=== PATIENT | female | born 1960 | race African-American/Black ===

== ENCOUNTER 2019-07-14 11:50 | IRF | payer OTHER, SELFPAY ==
[2019-07-14 11:57] VITALS: BMI 45.8
--- NOTE | 2019-07-14 11:58 | ADMGEN ---
This patient, Sun Cha, was admitted to [facility] Room 223-02. Patient/family oriented to hospital policies and general routines including ID bracelet, bed and alarms, visiting hours, pain management, procedures, bathroom and other care routines, personal items, smoking policy, room service/diet, and visiting hours. Valuables list has been completed. Information on how to activate the Rapid Response Team has been discussed. Patient/Family are encouraged to report perceived risks to care and to ask questions if they do not understand what they are told or what they should do.
[2019-07-14 12:21] VITALS: BP 139/58; PULSE 60; RESP 18; TEMP 36.6; O2SAT 100; BMI 45.8
--- NOTE | 2019-07-14 12:30 | WPDREHABHP ---
H&P: HPI History of Present Illness Chief complaint: CVA Narrative: Sun Cah is a 59 year old female HISTORY OF PRESENT ILLNESS: The patient's primary rehab impairment category is Stroke The etiologic diagnosis is left /large basal ganglia hemorrhage I saw this patient [id number] on July 14, 2019 at 12:30 p.m. The patient is a 59-year-old female with a past medical history of hypertension who presented to [facility] in July 08, 2019 via EMS after being found down by her family at 1:25 p.m.. Initial NIHSS was 26 with leftward gaze flaccid right upper extremity and right lower extremity and severe aphasia. CT of the head revealed a large basal ganglia hemorrhage 3.6 x 2.4 - 10.8 cubic centimeters. CTA showed no underlying vascular abnormalities. Neurology was consulted and felt this was likely a hypertensive hemorrhage based on location and presentation. She was placed on a Cardene drip per was weaned off the same day. On July 09, 2019 the patient passed her bedside swallowing evaluation and was placed on a regular consistency diet with thin liquids. Hydrochlorothiazide was resumed on July 09, 2019 and increase to 50 milligram daily on July 10, 2019. She experienced hypokalemia after increasing her hydrochlorothiazide so she was given potassium 40 milliequivalents. On July 11, 2019 amlodipine 5 milligram daily was added to her medications which has been increased to 10 milligram daily I see that. Physical examination continues to reveal right-sided hemiparesis rather hemiplegia almost decreased gross motor control impaired balance decrease safety awareness and aphasia. The patient was discharged to us with subcutaneous heparin for DVT prophylaxis. The patient has not traveled outside the yes or had contact with someone who is ill that has traveled outside the [place] in the past 21 days. The patient has not traveled to an area of the [place] that is experiencing known transmission of the vargas virus or head close personal contact the someone that has. The patient does not have a fever. The patient does not have symptoms of a lower respiratory illness. Therapy was initiated at the acute care facility and the patient transferred to us from [facility] on July 14, 2019 on FALLS OR SURGERIES: The patient has had no major surgeries in the 100 days prior to admission. They had no falls in the past year. They had no falls with injury in the past year. PAST MEDICAL HISTORY: hypertension asthma PAST SURGICAL HISTORY: ankle surgery SOCIAL HISTORY: the patient lives with her son at baseline in a 1 level home with 1 step to enter. She was completely independent and working part-time at [employer]. She drives herself. The daughter is available to assist her following rehabilitation if necessary. She reported no falls except this fall in the past 6 months. No major surgeries. Former smoker. Alcohol occasionally. No illicit use of drugs FAMILY HISTORY: brother had strokes and diabetes PRIOR LEVEL OF FUNCTION: Eating was INDEPENDENT Oral Care was INDEPENDENT Toileting Hygiene was INDEPENDENT Shower/Bathing was INDEPENDENT Upper Body Dressing was INDEPENDENT Lower Body Dressing was INDEPENDENT Donning/[place] Footwear was INDEPENDENT Rolling Left and Right was INDEPENDENT Sit to Lying was INDEPENDENT Lying to Sitting was INDEPENDENT Sit to Stand was INDEPENDENT Bed to Chair Transfers was INDEPENDENT Toilet Transfers was INDEPENDENT Walking was INDEPENDENT 999 feet with NO DEVICE Wheelchair Mobility was NOT APPLICABLE PRIOR TO ADMISSION Stairs were INDEPENDENT CURRENT LEVEL OF FUNCTION: Eating was set upper clean up Oral Care was partial or moderate assistance Toileting Hygiene was substantial or maximal assist Shower/Bathing was substantial or maximal assist Upper Body Dressing was partial or morbid assist Lower Body Dressing was substantial or maximal assist Donnin
[2019-07-14 14:00] VITALS: BP 136/56; PULSE 67; RESP 18; TEMP 36.6; O2SAT 98
[2019-07-14] MEDS: HEPARIN SODIUM 5,000 UNITS/ML VIAL 5000 UNITS SUB-Q (20:20)
[2019-07-14] MEDS: DOCUSATE SODIUM 100 MG CAPSULE PO (20:20)
[2019-07-14 22:00] VITALS: BP 131/50; PULSE 59; RESP 19; TEMP 36.6; O2SAT 100
[2019-07-15 04:34] LABS: Basophils Percent Auto 0.4 % (0.2-1.2); Eosinophils Absolute Auto 0.2 K/mm3 (0-0.3); Eosinophils Percent Auto 2.4 % (0-4.4); Hematocrit 40.2 % (37.0-47.0); Hemoglobin 13.1 g/dL (12.0-15.0); Immature Granulocyte Absolute 0.03 K/mm3 (0.00-0.031); Immature Granulocyte Percent A 0.3 % (0-0.5); Lymphocytes Absolute Auto 2.37 K/mm3 (0.9-3.2); Mean Corpuscular HGB Conc 32.6 g/dl (32-36); Mean Corpuscular Hemoglobin 30.4 pg (26-34); Mean Corpuscular Volume 93.3 fl (80-100); Mean Platelet Volume 11.8 fl (7.4-10.4); Monocytes Absolute Auto 1.2 K/mm3 (0.1-0.6); Monocytes Percent Auto 12.1 % (2.6-8.5); Neutrophils Absolute Auto 5.7 K/mm3 (1.3-6.7); Neutrophils Percent Auto 59.8 % (45.5-73.1); Platelet Count Result 212 k/mm3 (150-375); Red Blood Count 4.31 M/mm3 (4.2-5.4); Red Cell Distribution Width 13.7 % (11.5-14.5); White Blood Count 9.5 K/mm3 (4.5-10.0)
[2019-07-15 04:46] LABS: Blood Urea Nitrogen 23 mg/dL (7-17); Calcium 9.7 mg/dL (8.4-10.2); Carbon Dioxide 25 mmol/L (22-30); Chloride 103 mmol/L (98-107); Estimated CRCL calculation 80 ml/min; Estimated Glomerular Filt Rate > 60; Glucose 104 mg/dL (65-105); Potassium 4.2 mmol/L (3.4-5.0); Sodium 135 mmol/L (137-145)
[2019-07-15 06:00] VITALS: BP 123/56; PULSE 62; RESP 18; TEMP 36.8; O2SAT 97
[2019-07-15] MEDS: ACETAMINOPHEN 325 MG TABLET 650 MG PO ×2 (06:35→20:06)
[2019-07-15] MEDS: HEPARIN SODIUM 5,000 UNITS/ML VIAL 5000 UNITS SUB-Q ×3 (06:36→20:08)
[2019-07-15] MEDS: hydroCHLOROthiazide 25 MG TABLET 50 MG PO (08:29)
[2019-07-15] MEDS: AMLODIPINE BESYLATE 5 MG TABLET 10 MG PO (08:29)
[2019-07-15] MEDS: SENNOSIDES 8.6 MG TABLET PO (08:29)
[2019-07-15] MEDS: DOCUSATE SODIUM 100 MG CAPSULE PO ×2 (08:29→20:06)
--- NOTE | 2019-07-15 11:59 | WPDNEURORHBP ---
Subjective Date/time seen: 07/15/19 11:59 Interval history: this 59-year-old Afro-German woman is here after having had relatively large left basal ganglia hemorrhage with aphasia and moderately severe right-sided hemiparesis the patient is stable and going through the evaluation she will need the bedside swallowing study which she already had it done at the referring hospital the patient denies any worsening overall she denies any headache nausea vomiting chest pain shortness of breath fever chills sore throat Review of Systems Review of Systems: All systems reviewed & are unremarkable except as noted in HPI and below Exam Const: General: comfortable and no acute distress HENMT: General nose exam: Normal nares present Mouth: Yes moist mucous membranes Eyes: General: appearance normal, both eyes and all related structures Neck: Neck: supple and no JVD Resp: Effort & Inspection: normal respiratory effort Auscultation: clear to auscultation bilaterally Cardio: Rate: regular rate Rhythm: regular rhythm GI: GI Palp: Yes Soft to palpation Auscultation: normal bowel sounds Skin: General skin exam: normal color and no rashes or lesions noted Neuro: Other: patient is awake and alert able follow all commands she clearly has aphasia with the component of expression is more affected than the comprehension and also has a moderately severe right-sided hemiparesis which is too early to say how much she is improving but overall she is stable and making some progress as for as the speech is concerned Extrem: General: normal to inspection Psych: Other: patient does not look depressed or upset but she is little frustrated due to aphasia on the other hand difficult to assess her faculties because of the speech defect Objective Data Vital Signs Vital Signs: Vital Signs - 24 hr 07/14/19 12:21 07/14/19 14:00 07/14/19 22:00 Temperature 36.6 C 36.6 C 36.6 C Pulse Rate 60 67 59 L Respiratory Rate 18 18 19 Blood Pressure 139/58 L 136/56 L 131/50 L Pulse Oximetry 100 98 100 07/15/19 06:00 Temperature 36.8 C Pulse Rate 62 Respiratory Rate 18 Blood Pressure 123/56 L Pulse Oximetry 97 Intake/Output Intake/Output: Intake & Output 07/12/19 07/13/19 07/14/19 07/15/19 23:59 23:59 23:59 23:59 Intake Total 360 360 Balance 360 360 Meds/Results Medications: Active Medications Generic Name Dose Route Start Last Admin Trade Name Zayda PRN Reason Stop Dose Admin Acetaminophen 650 mg 07/14/19 12:47 07/15/19 06:35 Tylenol Tablet PO 650 mg Q4H PRN Administration Pain Albuterol 2 puff 07/14/19 12:47 Proventil Hfa INHALATION Q4H PRN Shortness Of Breath Amlodipine Besylate 10 mg 07/15/19 09:00 07/15/19 08:29 Norvasc PO 10 mg DAILY CHANDRA Administration Docusate Sodium 100 mg 07/14/19 21:00 07/15/19 08:29 Colace Capsule PO 100 mg Q12HR CHANDRA Administration Heparin Sodium (Porcine) 5,000 units 07/14/19 14:00 07/15/19 06:36 Heparin Sodium SUB-Q 5,000 units Q8HR CHANDRA Administration Hydrochlorothiazide 50 mg 07/15/19 09:00 07/15/19 08:29 Hydrochlorothiazide PO 50 mg DAILY CHANDRA Administration Senna 8.6 mg 07/15/19 09:00 07/15/19 08:29 Senokot Tablet PO 08/14/19 09:01 8.6 mg DAILY CHANDRA Administration Labs Labs: Laboratory Results - last 24 hr 07/15/19 07/15/19 04:28 04:28 WBC 9.5 RBC 4.31 Hgb 13.1 Hct 40.2 MCV 93.3 MCH 30.4 MCHC 32.6 RDW 13.7 Plt Count 212 MPV 11.8 H Immature Gran % (Auto) 0.3 Neut % (Auto) 59.8 Lymph % (Auto) 25.0 [place] % (Auto) 12.1 H Eos % (Auto) 2.4 Baso % (Auto) 0.4 Lymph # (Auto) 2.37 [place] # (Auto) 1.2 H Eos # (Auto) 0.2 Baso # (Auto) 0.0 Abs Immat Gran (auto) 0.03 Absolute Neuts (auto) 5.7 Absolute Nucleated RBC 0.0 Nucleated RBC % 0.0 Sodium 135 L Potassium 4.2 Chloride 103 Carbon Dioxide 25 BUN 23 H Creatinine 0.90 Estim Creat
--- NOTE | 2019-07-15 13:46 | PCSTNOTE ---
Please refer to the Bedside Swallow Evaluation in the EMR. Please note, silent aspiration cannot be ruled out at bedside.
[2019-07-15 14:00] VITALS: BP 145/60; PULSE 58; RESP 20; TEMP 37.2; O2SAT 100
[2019-07-15 14:03] VITALS: BMI 45.8
[2019-07-15 21:48] VITALS: BP 132/56; PULSE 66; RESP 18; TEMP 37.1; O2SAT 97
[2019-07-16] MEDS: HEPARIN SODIUM 5,000 UNITS/ML VIAL 5000 UNITS SUB-Q ×3 (05:57→20:07)
[2019-07-16] MEDS: ACETAMINOPHEN 325 MG TABLET 650 MG PO ×2 (05:58→12:43)
[2019-07-16 06:00] VITALS: BP 133/63; PULSE 60; RESP 16; TEMP 36.9; O2SAT 98
[2019-07-16] MEDS: AMLODIPINE BESYLATE 5 MG TABLET 10 MG PO (08:34)
[2019-07-16] MEDS: SENNOSIDES 8.6 MG TABLET PO (08:34)
[2019-07-16] MEDS: hydroCHLOROthiazide 25 MG TABLET 50 MG PO (08:34)
[2019-07-16] MEDS: DOCUSATE SODIUM 100 MG CAPSULE PO ×2 (08:34→20:07)
[2019-07-16 14:00] VITALS: BP 127/66; PULSE 60; RESP 18; TEMP 37.1; O2SAT 100
--- NOTE | 2019-07-16 14:16 | WPDNEURORHBP ---
Subjective Date/time seen: 07/16/19 14:16 Interval history: this 59-year-old woman is here after suffering from rather large left basal ganglia hemorrhage which has left her with aphasia and right-sided hemiparesis from both of which she is improving she denies any headache nausea vomiting double vision blurred vision her or any new weakness in fact she is improving overall no fever no chills no sore throat abdominal pain or vomiting Review of Systems Review of Systems: All systems reviewed & are unremarkable except as noted in HPI and below Functional Status Ambulation Ability Ability to Ambulate 10 Feet: Maximum Assistance X 1 Ambulation Assistive Devices: Railings Transfers Ability Ability to Transfer In/Out of Chair: Maximum Assistance X 1 Exam Const: General: comfortable and no acute distress HENMT: General nose exam: Normal nares present Mouth: Yes moist mucous membranes Eyes: General: appearance normal, both eyes and all related structures Neck: Neck: supple and no JVD Resp: Effort & Inspection: normal respiratory effort Auscultation: clear to auscultation bilaterally Cardio: Rate: regular rate Rhythm: regular rhythm GI: GI Palp: Yes Soft to palpation Auscultation: normal bowel sounds Skin: General skin exam: normal color and no rashes or lesions noted Neuro: Other: patient's aphasia is improving likewise right hemiparesis is improving and once she realizes it she seems to be handling gait better Extrem: General: normal to inspection Psych: Other: due to aphasia component it is difficult to assess her overall psychological /mental status Objective Data Vital Signs Vital Signs: Vital Signs - 24 hr 07/15/19 21:48 07/16/19 06:00 Temperature 37.1 C 36.9 C Pulse Rate 66 60 Respiratory Rate 18 16 Blood Pressure 132/56 L 133/63 Pulse Oximetry 97 98 Intake/Output Intake/Output: Intake & Output 07/13/19 07/14/19 07/15/19 07/16/19 23:59 23:59 23:59 23:59 Intake Total 360 840 240 Balance 360 840 240 Meds/Results Medications: Active Medications Generic Name Dose Route Start Last Admin Trade Name Freq PRN Reason Stop Dose Admin Acetaminophen 650 mg 07/14/19 12:47 07/16/19 12:43 Tylenol Tablet PO 650 mg Q4H PRN Administration Pain Albuterol 2 puff 07/14/19 12:47 Proventil Hfa INHALATION Q4H PRN Shortness Of Breath Amlodipine Besylate 10 mg 07/15/19 09:00 07/16/19 08:34 Norvasc PO 10 mg DAILY CHANDRA Administration Docusate Sodium 100 mg 07/14/19 21:00 07/16/19 08:34 Colace Capsule PO 100 mg Q12HR CHANDRA Administration Heparin Sodium (Porcine) 5,000 units 07/14/19 14:00 07/16/19 14:05 Heparin Sodium SUB-Q 5,000 units Q8HR CHANDRA Administration Hydrochlorothiazide 50 mg 07/15/19 09:00 07/16/19 08:34 Hydrochlorothiazide PO 50 mg DAILY CHANDRA Administration Senna 8.6 mg 07/15/19 09:00 07/16/19 08:34 Senokot Tablet PO 08/14/19 09:01 8.6 mg DAILY CHANDRA Administration Progress Note: A&P Assessment and Plan (1) Hypertension: Code(s): I10 - Essential (primary) hypertension Status: Acute (2) Intracranial hemorrhage: Code(s): I62.9 - Nontraumatic intracranial hemorrhage, unspecified Status: Acute (3) Stroke: Code(s): I63.9 - Cerebral infarction, unspecified Status: Acute Additional Plan medical management PT OT and gait training
--- NOTE | 2019-07-16 15:45 | RPD ---
INDIVIDUALIZED PLAN OF CARE FOR Sun Cha Brief Synthesis of Pre-Admission Screen, Post-Admission Evaluation and Therapy Evaluations: The patient presents to rehab with a large left basal ganglia hemorrhage. Comorbidities include Hypertension, right hemiparesis, expressive aphasia, hypokalemia, hypertensive urgency, and asthma.The patient needs physician monitoring and treatment of hypertension, hypokalemia, monitoring for adverse reactions to new medications, monitoring for infection, and pain control. The patient requires nursing services for frequent neuro checks, anticoagulation therapy, medication management and education, pressure relief and skin care management, monitoring of labs, bowel and bladder training, and fall/safety precautions. Deficits include:ADLs, Balance, Cognition, Endurance, Family Training/Education, Mobility, Pain Management, ROM, Safety, Speech, Strength, and Transfers. Pediatric Surgeon/Case Management for: Discharge Planning and Patient/Family Counseling Physical Therapy: 5 days per week for 60 minutes. Treatments may include: Therapeutic Exercise, Gait Training, Neuromuscular Re-education, Transfer Training, Community Reintegration, Bed Mobility, Patient/Family Education, Wheelchair Mobility Group Therapy/Concurrent Therapy Rationales: -Improve attention span during functional activities in a distracted environment. -Enhance problem solving and/or adequate judgment skills during functional activities in a distracted environment. -Promote increased safety awareness in a distracted environment to reduce fall risk with functional tasks, transfers, and ambulation to allow a more safe, self-sufficient return to the home environment. -Improve dynamic balance skills to promote safety and independence with functional activities in a distracted environment for maximum gain. Occupational Therapy: 5 days per week for 60 minutes. Treatments may include: Therapeutic Exercise, Therapeutic Activity, Cognitive Training, Self-Care Transfer Training, Community Reintegration, Home Management, Patient/Family Education, Wheelchair Mobility Training, Energy Conservation Training Group Therapy/Concurrent Therapy Rationales: -Allow therapist to observe and teach generalization and carry-over of skills learned in individual therapy. -Enhance problem solving and sequencing skills during therapeutic activities in a distracted environment. -Promote increased safety awareness in a realistic setting to reduce fall risk with functional tasks due to visual and verbal distractions. -Increase functional level with ADLs, ADL transfers and use of adaptive equipment through therapeutic activities with others while promoting safety to allow a more safe, self-sufficient return home. Speech Therapy: 5 days per week for 60 minutes. Treatments may include: Dysphasia Therapy, Speech/Language/Communication Therapy, Cognitive Training, Patient/Family Education Group Therapy/Concurrent Therapy - Rationale: -Allow therapist to observe and teach generalization and carry-over of skills learned in individual therapy. -Improve comprehension skills with complex or abstract ideas through discussion in a realistic setting. -Enhance problem solving skills with complex issues during activities in a distracted environment. -Promote increased memory skills and concentration in a distracted environment for a safe transition home. -Improve attention and focus with language/communication skills in a realistic and supportive therapeutic setting. -Allow for practice of expression of basic needs and ideas through functional activities with others. Medical Prognosis: Good Anticipated Length of Stay: 14 days Rehab Goals: Eating Goal: 05-Setup or Clean Up Assistance Oral Hygiene Goal: 06-Independent Toileting Hygiene Goal: 03-Partial/Moderate Assistance Shower/Bathe Self Goal: 03-Partial/Moderate Assistance Upper Body Dressing Goal: 03-Partial/Moderate Assistance Lower Body Dressing Go
[2019-07-16 22:00] VITALS: BP 136/66; PULSE 86; RESP 18; TEMP 36.8; O2SAT 100
[2019-07-17] MEDS: HEPARIN SODIUM 5,000 UNITS/ML VIAL 5000 UNITS SUB-Q ×3 (05:39→20:26)
[2019-07-17 06:00] VITALS: BP 143/64; PULSE 62; RESP 18; TEMP 36.8; O2SAT 95
[2019-07-17 08:00] VITALS: PULSE 62; RESP 18; O2SAT 95
[2019-07-17] MEDS: hydroCHLOROthiazide 25 MG TABLET 50 MG PO (08:33)
[2019-07-17] MEDS: AMLODIPINE BESYLATE 5 MG TABLET 10 MG PO (08:34)
[2019-07-17] MEDS: DOCUSATE SODIUM 100 MG CAPSULE PO ×2 (08:34→20:26)
[2019-07-17] MEDS: SENNOSIDES 8.6 MG TABLET PO (08:34)
--- NOTE | 2019-07-17 11:18 | WPDNEURORHBP ---
Subjective Date/time seen: lady with left basal gangliar hemorrhage/[id number]/11/20 11:18 Review of Systems Review of Systems: All systems reviewed & are unremarkable except as noted in HPI and below Functional Status Ambulation Ability Ability to Ambulate 10 Feet: Maximum Assistance X 1 Ambulation Assistive Devices: Railings Transfers Ability Ability to Transfer In/Out of Chair: Maximum Assistance X 1 Exam Const: General: comfortable and no acute distress HENMT: Head: normocephalic General nose exam: Normal external nose present and No nasal discharge present Face and sinus: normal facial exam Mouth: Yes Normal oral and palatal mucosa present, Yes tongue normal and Yes moist mucous membranes Neck: Neck: full ROM Chest: Chest palpation & inspection: normal palpation of entire chest wall Resp: Effort & Inspection: normal respiratory effort Auscultation: clear to auscultation bilaterally Cardio: Rate: regular rate Rhythm: regular rhythm GI: Auscultation: normal bowel sounds Skin: General skin exam: no rashes or lesions noted Neuro: General: oriented to place and moves all extremities Cranial nerves: Yes Equal, round and reactive pupils present, Yes Bilaterally intact EOM present and Yes Nystagmus not present Speech: Expressive aphasia present Gait exam (Neuro): Unable to assess gait Motor exam (neuro): Abnormal motor strength present (right hemiparesis) Deep tendon reflexes (DTR's): Right triceps reflex intensity grade: 1+, Left triceps reflex intensity grade: 0, Rt Biceps (C5, C6): 1+, Left biceps reflex intensity grade: 0, Right brachioradialis reflex intensity grade: 1+, Left brachioradialis reflex intensity grade: 0, Right patellar reflex intensity grade: 1+, Left patellar reflex intensity grade: 0, Right ankle reflex intensity grade: 1+ and Left ankle reflex intensity grade: 0 Plantar Reflex Responses: downgoing: left and upgoing (positive Babinski): right Psych: Affect: normal affect Attitude: cooperative Other: aphasic Objective Data Vital Signs Vital Signs: Vital Signs - 24 hr 07/16/19 14:00 07/16/19 22:00 07/17/19 06:00 Temperature 37.1 C 36.8 C 36.8 C Pulse Rate 60 86 62 Respiratory Rate 18 18 18 Blood Pressure 127/66 136/66 143/64 H Pulse Oximetry 100 100 95 Intake/Output Intake/Output: Intake & Output 07/14/19 07/15/19 07/16/19 07/17/19 23:59 23:59 23:59 23:59 Intake Total 360 840 720 240 Balance 360 840 720 240 Meds/Results Medications: Active Medications Generic Name Dose Route Start Last Admin Trade Name Freq PRN Reason Stop Dose Admin Acetaminophen 650 mg 07/14/19 12:47 07/16/19 12:43 Tylenol Tablet PO 650 mg Q4H PRN Administration Pain Albuterol 2 puff 07/14/19 12:47 Proventil Hfa INHALATION Q4H PRN Shortness Of Breath Amlodipine Besylate 10 mg 07/15/19 09:00 07/17/19 08:34 Norvasc PO 10 mg DAILY CHANDRA Administration Docusate Sodium 100 mg 07/14/19 21:00 07/17/19 08:34 Colace Capsule PO 100 mg Q12HR CHANDRA Administration Heparin Sodium (Porcine) 5,000 units 07/14/19 14:00 07/17/19 05:39 Heparin Sodium SUB-Q 5,000 units Q8HR CHANDRA Administration Hydrochlorothiazide 50 mg 07/15/19 09:00 07/17/19 08:33 Hydrochlorothiazide PO 50 mg DAILY CHANDRA Administration Senna 8.6 mg 07/15/19 09:00 07/17/19 08:34 Senokot Tablet PO 08/14/19 09:01 8.6 mg DAILY CHANDRA Administration Progress Note: A&P Assessment and Plan (1) Hypertension: Code(s): I10 - Essential (primary) hypertension Status: Acute (2) Intracranial hemorrhage: Code(s): I62.9 - Nontraumatic intracranial hemorrhage, unspecified Status: Acute Additional Plan involved no change and no complaints
[2019-07-17 14:00] VITALS: BP 134/53; PULSE 65; RESP 20; TEMP 37.2; O2SAT 100
[2019-07-17 22:00] VITALS: BP 142/68; PULSE 60; RESP 20; TEMP 36.9; O2SAT 100
[2019-07-18 06:00] VITALS: BP 138/59; PULSE 68; RESP 18; TEMP 36.5; O2SAT 98
[2019-07-18] MEDS: HEPARIN SODIUM 5,000 UNITS/ML VIAL 5000 UNITS SUB-Q ×3 (06:18→20:55)
[2019-07-18] MEDS: hydroCHLOROthiazide 25 MG TABLET 50 MG PO (08:32)
[2019-07-18] MEDS: AMLODIPINE BESYLATE 5 MG TABLET 10 MG PO (08:32)
[2019-07-18] MEDS: SENNOSIDES 8.6 MG TABLET PO (08:33)
[2019-07-18] MEDS: DOCUSATE SODIUM 100 MG CAPSULE PO ×2 (08:33→20:55)
[2019-07-18 14:00] VITALS: BP 110/60; PULSE 68; RESP 18; TEMP 36.8; O2SAT 97
[2019-07-18 22:00] VITALS: BP 126/74; PULSE 89; RESP 18; TEMP 36.9; O2SAT 98
[2019-07-19 06:00] VITALS: BP 135/62; PULSE 63; RESP 18; TEMP 36.3; O2SAT 97
[2019-07-19] MEDS: HEPARIN SODIUM 5,000 UNITS/ML VIAL 5000 UNITS SUB-Q ×3 (06:16→20:12)
[2019-07-19] MEDS: ACETAMINOPHEN 325 MG TABLET 650 MG PO ×2 (06:30→20:21)
[2019-07-19] MEDS: AMLODIPINE BESYLATE 5 MG TABLET 10 MG PO (08:22)
[2019-07-19] MEDS: DOCUSATE SODIUM 100 MG CAPSULE PO ×2 (08:22→20:13)
[2019-07-19] MEDS: hydroCHLOROthiazide 25 MG TABLET 50 MG PO (08:22)
[2019-07-19] MEDS: SENNOSIDES 8.6 MG TABLET PO (11:00)
--- NOTE | 2019-07-19 11:32 | WPDNEURORHBP ---
Subjective Date/time seen: left basal ganglia [id number]/20 11:32 Review of Systems Review of Systems: All systems reviewed & are unremarkable except as noted in HPI and below Functional Status Ambulation Ability Ability to Ambulate 10 Feet: Maximum Assistance X 1 Ambulation Assistive Devices: Railings Transfers Ability Ability to Transfer In/Out of Chair: Moderate Assistance X 1 Exam Const: General: cooperative, comfortable and no acute distress Nutritional Appearance: average body habitus Eyes: General: appearance normal, both eyes and all related structures Neck: Neck: full ROM Resp: Effort & Inspection: normal respiratory effort Auscultation: clear to auscultation bilaterally Cardio: Rate: regular rate Rhythm: regular rhythm GI: Auscultation: normal bowel sounds Skin: General skin exam: no rashes or lesions noted Neuro: General: oriented to person and oriented to place Cranial nerves: Yes Equal, round and reactive pupils present, Yes Nystagmus not present, Yes Normal facial strength present, Yes Midline tongue present, Yes Symmetric palate elevation present and Yes Ability to bilaterally rotate head present Cognition (Neuro): normal cognition Motor exam (neuro): Abnormal motor strength present (right hemiparesis) Objective Data Vital Signs Vital Signs: Vital Signs - 24 hr 07/18/19 14:00 07/18/19 22:00 07/19/19 06:00 Temperature 36.8 C 36.9 C 36.3 C L Pulse Rate 68 89 63 Respiratory Rate 18 18 18 Blood Pressure 110/60 126/74 135/62 Pulse Oximetry 97 98 97 Intake/Output Intake/Output: Intake & Output 07/16/19 07/17/19 07/18/19 07/19/19 23:59 23:59 23:59 23:59 Intake Total 720 540 500 240 Balance 720 540 500 240 Meds/Results Medications: Active Medications Generic Name Dose Route Start Last Admin Trade Name Freq PRN Reason Stop Dose Admin Acetaminophen 650 mg 07/14/19 12:47 07/19/19 06:30 Tylenol Tablet PO 650 mg Q4H PRN Administration Pain Albuterol 2 puff 07/14/19 12:47 Proventil Hfa INHALATION Q4H PRN Shortness Of Breath Amlodipine Besylate 10 mg 07/15/19 09:00 07/19/19 08:22 Norvasc PO 10 mg DAILY CHANDRA Administration Docusate Sodium 100 mg 07/14/19 21:00 07/19/19 08:22 Colace Capsule PO 100 mg Q12HR CHANDRA Administration Heparin Sodium (Porcine) 5,000 units 07/14/19 14:00 07/19/19 06:16 Heparin Sodium SUB-Q 5,000 units Q8HR CHANDRA Administration Hydrochlorothiazide 50 mg 07/15/19 09:00 07/19/19 08:22 Hydrochlorothiazide PO 50 mg DAILY CHANDRA Administration Senna 8.6 mg 07/15/19 09:00 07/19/19 11:00 Senokot Tablet PO 08/14/19 09:01 8.6 mg DAILY CHANDRA Administration Progress Note: A&P Assessment and Plan (1) Hypertension: Code(s): I10 - Essential (primary) hypertension Status: Acute (2) Intracranial hemorrhage: Code(s): I62.9 - Nontraumatic intracranial hemorrhage, unspecified Status: Acute (3) Stroke: Code(s): I63.9 - Cerebral infarction, unspecified Status: Acute Additional Plan stable
[2019-07-19 14:00] VITALS: BP 134/65; PULSE 90; RESP 20; TEMP 37.1; O2SAT 97
[2019-07-19 21:13] VITALS: BP 142/60; PULSE 66; RESP 20; TEMP 37.3; O2SAT 100
[2019-07-20 06:00] VITALS: BP 129/62; PULSE 56; RESP 16; TEMP 36.9; O2SAT 98
[2019-07-20] MEDS: HEPARIN SODIUM 5,000 UNITS/ML VIAL 5000 UNITS SUB-Q ×3 (06:36→21:54)
[2019-07-20] MEDS: DOCUSATE SODIUM 100 MG CAPSULE PO ×2 (09:38→20:21)
[2019-07-20] MEDS: AMLODIPINE BESYLATE 5 MG TABLET 10 MG PO (09:39)
[2019-07-20] MEDS: hydroCHLOROthiazide 25 MG TABLET 50 MG PO (09:39)
[2019-07-20] MEDS: SENNOSIDES 8.6 MG TABLET PO (09:39)
[2019-07-20 11:04] VITALS: PULSE 60; RESP 16
--- NOTE | 2019-07-20 12:37 | WPDNEURORHBP ---
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 she is slowly improving denies any new complaints in particular denies any fever chills sore throat chest pain shortness of breath abdominal pain diarrhea or vomiting she is making progress Review of Systems Review of Systems: All systems reviewed & are unremarkable except as noted in HPI and below Functional Status Ambulation Ability Ability to Ambulate 10 Feet: Maximum Assistance X 1 Ambulation Assistive Devices: Railings Transfers Ability Ability to Transfer In/Out of Chair: Moderate Assistance X 1 Exam Const: General: no acute distress and in distress HENMT: General nose exam: Normal nares present Mouth: Yes moist mucous membranes Eyes: General: appearance normal, both eyes and all related structures Neck: Neck: supple and no JVD Resp: Effort & Inspection: normal respiratory effort Auscultation: clear to auscultation bilaterally Cardio: Rate: regular rate Rhythm: regular rhythm GI: GI Palp: Yes Soft to palpation Auscultation: normal bowel sounds Skin: General skin exam: normal color and no rashes or lesions noted Neuro: Other: patient is awake and alert partially oriented aphasia is improving receptive more so than expressive but clearly improving right-sided hemiparesis is also in and she is getting good reports from or PT OT and speech Extrem: General: normal to inspection Psych: Other: due to aphasia it is difficult to assess her psychological state however she does not seem to be overly depressed seems to be in good spirits and following commands and doing fairly well Objective Data Vital Signs Vital Signs: Vital Signs - 24 hr 07/19/19 14:00 07/19/19 21:13 07/20/19 06:00 Temperature 37.1 C 37.3 C 36.9 C Pulse Rate 90 66 56 L Respiratory Rate 20 20 16 Blood Pressure 134/65 142/60 H 129/62 Pulse Oximetry 97 100 98 07/20/19 11:04 Temperature Pulse Rate 60 Respiratory Rate 16 Blood Pressure Pulse Oximetry Intake/Output Intake/Output: Intake & Output 07/17/19 07/18/19 07/19/19 07/20/19 23:59 23:59 23:59 23:59 Intake Total 540 500 560 200 Balance 540 500 560 200 Meds/Results Medications: Active Medications Generic Name Dose Route Start Last Admin Trade Name Freq PRN Reason Stop Dose Admin Acetaminophen 650 mg 07/14/19 12:47 07/19/19 20:21 Tylenol Tablet PO 650 mg Q4H PRN Administration Pain Albuterol 2 puff 07/14/19 12:47 Proventil Hfa INHALATION Q4H PRN Shortness Of Breath Amlodipine Besylate 10 mg 07/15/19 09:00 07/20/19 09:39 Norvasc PO 10 mg DAILY CHANDRA Administration Docusate Sodium 100 mg 07/14/19 21:00 07/20/19 09:38 Colace Capsule PO 100 mg Q12HR CHANDRA Administration Heparin Sodium (Porcine) 5,000 units 07/14/19 14:00 07/20/19 06:36 Heparin Sodium SUB-Q 5,000 units Q8HR CHANDRA Administration Hydrochlorothiazide 50 mg 07/15/19 09:00 07/20/19 09:39 Hydrochlorothiazide PO 50 mg DAILY CHANDRA Administration Senna 8.6 mg 07/15/19 09:00 07/20/19 09:39 Senokot Tablet PO 08/14/19 09:01 8.6 mg DAILY CHANDRA Administration Progress Note: A&P Assessment and Plan (1) Hypertension: Code(s): I10 - Essential (primary) hypertension Status: Acute (2) Intracranial hemorrhage: Code(s): I62.9 - Nontraumatic intracranial hemorrhage, unspecified Status: Acute (3) Stroke: Code(s): I63.9 - Cerebral infarction, unspecified Status: Acute (4) Aphasia: Code(s): R47.01 - Aphasia Status: Acute (5) Right hemiparesis: Code(s): G81.91 - Hemiplegia, unspecified affecting right dominant side Status: Acute Additional Plan discussed in the team conference we will continue the present management add electrical stimulation to the ri
--- NOTE | 2019-07-20 13:41 | PCDIET ---
Nutrition Follow-Up Complete: Nutrition Diagnosis: Decreased fat/sodium needs related to cardiovascular disease as evidenced by CVA. Nutrition Goal: Patient to consume 50% of meals or greater. Goal not met. Patient consuming 25-50% of meals on heart healthy diet. Not taking Ensure Compact shake, per nurse aid. Recommend adding Thrive Ice Cream (270kcal, 9g protein) twice daily and stopping Ensure Compact. Would also consider regular diet to potentially improve intake. Last recorded weight is 124.8 kg. Recommend weekly weights. Bowel Motility: +BM today, incontinent of stool. Labs Reviewed: No new labs available. Meds Noted: Albuterol, Colace, Senna, Hydrochlorothiazide Additional Notes: No documented skin breakdown. Will continue to monitor with same goal. Nutrition Monitoring and Evaluation: Follow up every 5 days.
[2019-07-20 14:00] VITALS: BP 150/65; PULSE 70; RESP 18; TEMP 36.8; O2SAT 100
[2019-07-20] MEDS: ACETAMINOPHEN 325 MG TABLET 650 MG PO (18:49)
[2019-07-20 22:00] VITALS: BP 126/74; PULSE 76; RESP 18; TEMP 36.4; O2SAT 98
[2019-07-21] MEDS: ACETAMINOPHEN 325 MG TABLET 650 MG PO (05:10)
[2019-07-21 06:00] VITALS: BP 129/63; PULSE 64; RESP 18; TEMP 36.5; O2SAT 98
[2019-07-21] MEDS: HEPARIN SODIUM 5,000 UNITS/ML VIAL 5000 UNITS SUB-Q ×3 (06:00→20:52)
[2019-07-21] MEDS: AMLODIPINE BESYLATE 5 MG TABLET 10 MG PO (09:25)
[2019-07-21] MEDS: hydroCHLOROthiazide 25 MG TABLET 50 MG PO (09:25)
[2019-07-21] MEDS: DOCUSATE SODIUM 100 MG CAPSULE PO ×2 (09:29→20:57)
[2019-07-21] MEDS: SENNOSIDES 8.6 MG TABLET PO (09:29)
[2019-07-21 14:00] VITALS: BP 147/56; PULSE 70; RESP 17; TEMP 36.2; O2SAT 99
--- NOTE | 2019-07-21 14:41 | WPDNEURORHBP ---
Subjective Date/time seen: 07/21/19 14:41 Interval history: this 59 ever woman is here because of rather large left basal ganglia hemorrhage with aphasia and right-sided hemiparesis she is slowly improving she is comprehending better following commands and the strength on the right side is improving without any new complaints particularly no headache nausea vomiting chest pain shortness of breath Review of Systems Review of Systems: All systems reviewed & are unremarkable except as noted in HPI and below Functional Status Ambulation Ability Ability to Ambulate 10 Feet: Maximum Assistance X 1 Ambulation Assistive Devices: Railings Transfers Ability Ability to Transfer In/Out of Chair: Moderate Assistance X 1 Exam Const: General: comfortable and no acute distress HENMT: General nose exam: Normal nares present Mouth: Yes moist mucous membranes Eyes: General: appearance normal, both eyes and all related structures Neck: Neck: supple and no JVD Resp: Effort & Inspection: normal respiratory effort Auscultation: clear to auscultation bilaterally Cardio: Rate: regular rate Rhythm: regular rhythm GI: GI Palp: Yes Soft to palpation Auscultation: normal bowel sounds Skin: General skin exam: normal color and no rashes or lesions noted Neuro: Other: patient's aphasia and right-sided hemiparesis is improving Extrem: General: normal to inspection Psych: Mental Status: mental status grossly normal Objective Data Vital Signs Vital Signs: Vital Signs - 24 hr 07/20/19 22:00 07/21/19 06:00 Temperature 36.4 C 36.5 C Pulse Rate 76 64 Respiratory Rate 18 18 Blood Pressure 126/74 129/63 Pulse Oximetry 98 98 Intake/Output Intake/Output: Intake & Output 07/18/19 07/19/19 07/20/19 07/21/19 23:59 23:59 23:59 23:59 Intake Total 500 560 500 700 Balance 500 560 500 700 Meds/Results Medications: Active Medications Generic Name Dose Route Start Last Admin Trade Name Freq PRN Reason Stop Dose Admin Acetaminophen 650 mg 07/14/19 12:47 07/21/19 05:10 Tylenol Tablet PO 650 mg Q4H PRN Administration Pain Albuterol 2 puff 07/14/19 12:47 Proventil Hfa INHALATION Q4H PRN Shortness Of Breath Amlodipine Besylate 10 mg 07/15/19 09:00 07/21/19 09:25 Norvasc PO 10 mg DAILY CHANDRA Administration Docusate Sodium 100 mg 07/14/19 21:00 07/21/19 09:29 Colace Capsule PO 100 mg Q12HR CHANDRA Administration Heparin Sodium (Porcine) 5,000 units 07/14/19 14:00 07/21/19 06:00 Heparin Sodium SUB-Q 5,000 units Q8HR CHANDRA Administration Hydrochlorothiazide 50 mg 07/15/19 09:00 07/21/19 09:25 Hydrochlorothiazide PO 50 mg DAILY CHANDRA Administration Senna 8.6 mg 07/15/19 09:00 07/21/19 09:29 Senokot Tablet PO 08/14/19 09:01 8.6 mg DAILY CHANDRA Administration Progress Note: A&P Assessment and Plan (1) Right hemiparesis: Code(s): G81.91 - Hemiplegia, unspecified affecting right dominant side Status: Acute (2) Aphasia: Code(s): R47.01 - Aphasia Status: Acute (3) Hypertension: Code(s): I10 - Essential (primary) hypertension Status: Acute (4) Intracranial hemorrhage: Code(s): I62.9 - Nontraumatic intracranial hemorrhage, unspecified Status: Acute (5) Stroke: Code(s): I63.9 - Cerebral infarction, unspecified Status: Acute Additional Plan continue speech therapy physical therapy of compression therapy gait training and medical management
[2019-07-21 22:00] VITALS: BP 132/74; PULSE 79; RESP 18; TEMP 37; O2SAT 99
[2019-07-22 04:42] LABS: Basophils Absolute Auto 0.1 K/mm3 (0.0-0.1); Basophils Percent Auto 0.9 % (0.2-1.2); Eosinophils Absolute Auto 0.2 K/mm3 (0-0.3); Eosinophils Percent Auto 2.3 % (0-4.4); Hematocrit 42.1 % (37.0-47.0); Hemoglobin 13.7 g/dL (12.0-15.0); Immature Granulocyte Absolute 0.03 K/mm3 (0.00-0.031); Immature Granulocyte Percent A 0.4 % (0-0.5); Lymphocytes Absolute Auto 2.08 K/mm3 (0.9-3.2); Lymphocytes Percent Auto 27.2 % (18.3-44.2); Mean Corpuscular HGB Conc 32.5 g/dl (32-36); Mean Corpuscular Hemoglobin 30.1 pg (26-34); Mean Corpuscular Volume 92.5 fl (80-100); Mean Platelet Volume 12.1 fl (7.4-10.4); Monocytes Absolute Auto 1.1 K/mm3 (0.1-0.6); Monocytes Percent Auto 14.1 % (2.6-8.5); Neutrophils Absolute Auto 4.2 K/mm3 (1.3-6.7); Neutrophils Percent Auto 55.1 % (45.5-73.1); Platelet Count Result 251 k/mm3 (150-375); Red Blood Count 4.55 M/mm3 (4.2-5.4); Red Cell Distribution Width 12.9 % (11.5-14.5); White Blood Count 7.7 K/mm3 (4.5-10.0)
[2019-07-22 05:11] LABS: Blood Urea Nitrogen 40 mg/dL (7-17); Carbon Dioxide 29 mmol/L (22-30); Chloride 96 mmol/L (98-107); Estimated CRCL calculation 73 ml/min; Estimated Glomerular Filt Rate > 60; Glucose 117 mg/dL (65-105); Sodium 135 mmol/L (137-145)
[2019-07-22] MEDS: HEPARIN SODIUM 5,000 UNITS/ML VIAL 5000 UNITS SUB-Q ×3 (05:47→20:14)
[2019-07-22 06:00] VITALS: BP 132/64; PULSE 76; RESP 18; TEMP 37; O2SAT 98
[2019-07-22] MEDS: AMLODIPINE BESYLATE 5 MG TABLET 10 MG PO (09:19)
[2019-07-22] MEDS: hydroCHLOROthiazide 25 MG TABLET 50 MG PO (09:20)
[2019-07-22] MEDS: DOCUSATE SODIUM 100 MG CAPSULE PO ×2 (09:20→20:13)
[2019-07-22] MEDS: SENNOSIDES 8.6 MG TABLET PO (09:21)
--- NOTE | 2019-07-22 11:33 | WPDNEURORHBP ---
Subjective Date/time seen: 07/22/19 11:33 Interval history: this 59-year-old woman is here after having had a left cerebral bleed which has left her with the aphasia and right-sided hemiparesis from which she is improving the right leg has improved better than the right upper extremity she denies any new symptoms or signs particularly no headache nausea vomiting chest pain shortness of breath fever chills or sore throat Review of Systems Review of Systems: All systems reviewed & are unremarkable except as noted in HPI and below Functional Status Ambulation Ability Ability to Ambulate 10 Feet: Maximum Assistance X 1 Ambulation Assistive Devices: Railings Transfers Ability Ability to Transfer In/Out of Chair: Moderate Assistance X 1 Exam Const: General: comfortable and no acute distress HENMT: General nose exam: Normal nares present Mouth: Yes moist mucous membranes Eyes: General: appearance normal, both eyes and all related structures Neck: Neck: supple and no JVD Resp: Effort & Inspection: normal respiratory effort Auscultation: clear to auscultation bilaterally Cardio: Rate: regular rate Rhythm: regular rhythm GI: GI Palp: Yes Soft to palpation Auscultation: normal bowel sounds Skin: General skin exam: normal color and no rashes or lesions noted Neuro: Other: patient's aphasia is improving likewise the right-sided hemiparesis is also improving where the upper extremities lagging behind the ri Extrem: General: normal to inspection Psych: Other: aphasia is improving Objective Data Vital Signs Vital Signs: Vital Signs - 24 hr 07/21/19 14:00 07/21/19 22:00 07/22/19 06:00 Temperature 36.2 C L 37.0 C 37.0 C Pulse Rate 70 79 76 Respiratory Rate 17 18 18 Blood Pressure 147/56 H 132/74 132/64 Pulse Oximetry 99 99 98 Intake/Output Intake/Output: Intake & Output 07/19/19 07/20/19 07/21/19 07/22/19 23:59 23:59 23:59 23:59 Intake Total 560 500 940 120 Balance 560 500 940 120 Meds/Results Medications: Active Medications Generic Name Dose Route Start Last Admin Trade Name Freq PRN Reason Stop Dose Admin Acetaminophen 650 mg 07/14/19 12:47 07/21/19 05:10 Tylenol Tablet PO 650 mg Q4H PRN Administration Pain Albuterol 2 puff 07/14/19 12:47 Proventil Hfa INHALATION Q4H PRN Shortness Of Breath Amlodipine Besylate 10 mg 07/15/19 09:00 07/22/19 09:19 Norvasc PO 10 mg DAILY CHANDRA Administration Docusate Sodium 100 mg 07/14/19 21:00 07/22/19 09:20 Colace Capsule PO 100 mg Q12HR CHANDRA Administration Heparin Sodium (Porcine) 5,000 units 07/14/19 14:00 07/22/19 05:47 Heparin Sodium SUB-Q 5,000 units Q8HR CHANDRA Administration Hydrochlorothiazide 50 mg 07/15/19 09:00 07/22/19 09:20 Hydrochlorothiazide PO 50 mg DAILY CHANDRA Administration Potassium Chloride 20 meq 07/23/19 08:00 Kcl Tablet PO DAILY@0800 CHANDRA Senna 8.6 mg 07/15/19 09:00 07/22/19 09:21 Senokot Tablet PO 08/14/19 09:01 8.6 mg DAILY CHANDRA Administration Labs Labs: Laboratory Results - last 24 hr 07/22/19 07/22/19 04:31 04:31 WBC 7.7 RBC 4.55 Hgb 13.7 Hct 42.1 MCV 92.5 MCH 30.1 MCHC 32.5 RDW 12.9 Plt Count 251 MPV 12.1 H Immature Gran % (Auto) 0.4 Neut % (Auto) 55.1 Lymph % (Auto) 27.2 [place] % (Auto) 14.1 H Eos % (Auto) 2.3 Baso % (Auto) 0.9 Lymph # (Auto) 2.08 [place] # (Auto) 1.1 H Eos # (Auto) 0.2 Baso # (Auto) 0.1 Abs Immat Gran (auto) 0.03 Absolute Neuts (auto) 4.2 Absolute Nucleated RBC 0.0 Nucleated RBC % 0.0 Sodium 135 L Potassium 3.0 L Chloride 96 L Carbon Dioxide 29 BUN 40 H D Creatinine 1.00 Estim Creat Clear Calc 73 Estimated GFR > 60 Glucose 117 H Calcium 10.0 Progress Note: A&P Assessment and Plan (1) Right hemiparesis: Code(s): G81.91 - Hemiplegia, unspecified affecting right dominant side Status: Acute (2) Aphasia:
[2019-07-22] MEDS: POTASSIUM CHLORIDE 20 MEQ TABLET 40 MEQ PO (12:03)
[2019-07-22 14:00] VITALS: BP 139/78; PULSE 87; RESP 17; TEMP 36.2; O2SAT 100
[2019-07-22] MEDS: ACETAMINOPHEN 325 MG TABLET 650 MG PO (21:12)
[2019-07-22 22:00] VITALS: BP 146/60; PULSE 65; RESP 20; TEMP 36.6; O2SAT 100
[2019-07-23 06:00] VITALS: BP 143/58; PULSE 65; RESP 16; TEMP 36.2; O2SAT 99
[2019-07-23] MEDS: HEPARIN SODIUM 5,000 UNITS/ML VIAL 5000 UNITS SUB-Q ×3 (06:33→20:15)
[2019-07-23] MEDS: AMLODIPINE BESYLATE 5 MG TABLET 10 MG PO (09:38)
[2019-07-23] MEDS: POTASSIUM CHLORIDE 20 MEQ TABLET.ER PO (09:38)
[2019-07-23] MEDS: hydroCHLOROthiazide 25 MG TABLET 50 MG PO (09:39)
[2019-07-23] MEDS: DOCUSATE SODIUM 100 MG CAPSULE PO ×2 (09:40→20:14)
[2019-07-23] MEDS: SENNOSIDES 8.6 MG TABLET PO (09:40)
--- NOTE | 2019-07-23 12:37 | PCSTNOTE ---
Please refer to the Bedside Swallow Evaluation in the EMR. Please note, silent aspiration cannot be ruled out at bedside.
--- NOTE | 2019-07-23 13:41 | PCDIET ---
Nutrition Follow-Up Complete: Nutrition Diagnosis: Decreased fat/sodium needs related to cardiovascular disease as evidenced by CVA. Nutrition Goal: Patient to consume 50% of meals or greater. Goal in progress. Patient only consuming 25-50% of most meals on heart healthy diet. Receiving Thrive Ice Cream BID. Nurse aid reports patient did not take supplement at lunch but will encourage its intake at dinner. Most of information was taken from nurse aid via phone due to COVID-19 precautions. Did phone patient's room where it was reported that patient has been taking Thrive Ice Cream. Last recorded weight is 124.8 kg. Recommend obtaining new weight. Bowel Motility: Last documented bowel movement on 07/21/19. Labs Reviewed: Glu (117), K (3.0), Na (135) Meds Noted: Proventil, Colace, KCl, Senna, Hydrochlorothiazide Additional Notes: No documented skin breakdown. Recommend continuing present supplements. Would consider temporary liberalization to regular diet to potentially maximize intake. Nutrition Monitoring and Evaluation: Follow up every 5 days.
--- NOTE | 2019-07-23 13:56 | WPDNEURORHBP ---
Subjective Date/time seen: 07/23/19 13:56 Interval history: this 59-year-old is here after having had a left hemispheric intracranial hemorrhage she was doing fairly well in the previous several days and improving however today she is complaining of some difficulty swallowing which is relatively new without any other signs of headache nausea vomiting chest pain shortness of breath or anything to suggest an ongoing worsening at all of intracranial hemorrhage Review of Systems Review of Systems: All systems reviewed & are unremarkable except as noted in HPI and below Functional Status Ambulation Ability Ability to Ambulate 10 Feet: Maximum Assistance X 1 Ambulation Assistive Devices: Railings Transfers Ability Ability to Transfer In/Out of Chair: Moderate Assistance X 1 Exam Const: General: comfortable and no acute distress HENMT: General nose exam: Normal nares present Mouth: Yes moist mucous membranes Eyes: General: appearance normal, both eyes and all related structures Neck: Neck: supple and no JVD Resp: Effort & Inspection: normal respiratory effort Auscultation: clear to auscultation bilaterally Cardio: Rate: regular rate Rhythm: regular rhythm GI: GI Palp: Yes Soft to palpation Auscultation: normal bowel sounds Skin: General skin exam: normal color and no rashes or lesions noted Neuro: Other: aphasia and right-sided hemiparesis is improving gag reflex is intact Extrem: General: normal to inspection Psych: Other: due to aphasia it is difficult to assess her psychological exam Objective Data Vital Signs Vital Signs: Vital Signs - 24 hr 07/22/19 14:00 07/22/19 22:00 07/23/19 06:00 Temperature 36.2 C L 36.6 C 36.2 C L Pulse Rate 87 65 65 Respiratory Rate 17 20 16 Blood Pressure 139/78 146/60 H 143/58 H Pulse Oximetry 100 100 99 Intake/Output Intake/Output: Intake & Output 07/20/19 07/21/19 07/22/19 07/23/19 23:59 23:59 23:59 23:59 Intake Total 500 940 890 100 Balance 500 940 890 100 Meds/Results Medications: Active Medications Generic Name Dose Route Start Last Admin Trade Name Freq PRN Reason Stop Dose Admin Acetaminophen 650 mg 07/14/19 12:47 07/22/19 21:12 Tylenol Tablet PO 650 mg Q4H PRN Administration Pain Albuterol 2 puff 07/14/19 12:47 Proventil Hfa INHALATION Q4H PRN Shortness Of Breath Amlodipine Besylate 10 mg 07/15/19 09:00 07/23/19 09:38 Norvasc PO 10 mg DAILY CHANDRA Administration Docusate Sodium 100 mg 07/14/19 21:00 07/23/19 09:40 Colace Capsule PO 100 mg Q12HR CHANDRA Administration Heparin Sodium (Porcine) 5,000 units 07/14/19 14:00 07/23/19 06:33 Heparin Sodium SUB-Q 5,000 units Q8HR CHANDRA Administration Hydrochlorothiazide 50 mg 07/15/19 09:00 07/23/19 09:39 Hydrochlorothiazide PO 50 mg DAILY CHANDRA Administration Potassium Chloride 20 meq 07/23/19 08:00 07/23/19 09:38 Kcl Tablet PO 20 meq DAILY@0800 CHANDRA Administration Senna 8.6 mg 07/15/19 09:00 07/23/19 09:40 Senokot Tablet PO 08/14/19 09:01 8.6 mg DAILY CHANDRA Administration Progress Note: A&P Assessment and Plan (1) Dysphagia: Code(s): R13.10 - Dysphagia, unspecified Status: Acute (2) Right hemiparesis: Code(s): G81.91 - Hemiplegia, unspecified affecting right dominant side Status: Acute (3) Aphasia: Code(s): R47.01 - Aphasia Status: Acute (4) Hypertension: Code(s): I10 - Essential (primary) hypertension Status: Acute (5) Intracranial hemorrhage: Code(s): I62.9 - Nontraumatic intracranial hemorrhage, unspecified Status: Acute (6) Stroke: Code(s): I63.9 - Cerebral infarction, unspecified Status: Acute Additional Plan I have requested a my speech pathologist to do a bed side swallowing study to make sure that she is able to swallow better and do recommendations rest of the management as before
[2019-07-23 14:00] VITALS: BP 137/58; PULSE 66; RESP 20; TEMP 36.1; O2SAT 100
[2019-07-23 22:00] VITALS: BP 142/58; PULSE 63; RESP 18; TEMP 36.4; O2SAT 100
[2019-07-24] MEDS: HEPARIN SODIUM 5,000 UNITS/ML VIAL 5000 UNITS SUB-Q ×3 (05:54→21:20)
[2019-07-24 06:00] VITALS: BP 115/39; PULSE 57; RESP 18; TEMP 36.4; O2SAT 98
[2019-07-24] MEDS: ACETAMINOPHEN 325 MG TABLET 650 MG PO ×2 (06:00→21:23)
[2019-07-24] MEDS: AMLODIPINE BESYLATE 5 MG TABLET 10 MG PO (08:47)
[2019-07-24] MEDS: hydroCHLOROthiazide 25 MG TABLET 50 MG PO (08:47)
[2019-07-24] MEDS: POTASSIUM CHLORIDE 20 MEQ TABLET.ER PO (08:47)
[2019-07-24] MEDS: SENNOSIDES 8.6 MG TABLET PO (08:49)
[2019-07-24] MEDS: DOCUSATE SODIUM 100 MG CAPSULE PO ×2 (08:49→21:21)
[2019-07-24 14:00] VITALS: BP 141/55; PULSE 61; RESP 18; TEMP 36.1; O2SAT 100
--- NOTE | 2019-07-24 14:43 | WPDNEURORHBP ---
Subjective Date/time seen: 07/24/19 14:43 Interval history: this 59-year-old woman is here because of the intracranial hemorrhage the left hemisphere with aphasia and right-sided hemiparesis slowly improving and engage in therapy denies any headache nausea vomiting chest pain shortness of breath fever chills or sore throat Review of Systems Review of Systems: All systems reviewed & are unremarkable except as noted in HPI and below Functional Status Ambulation Ability Ability to Ambulate 10 Feet: Maximum Assistance X 1 Ambulation Assistive Devices: Railings Transfers Ability Ability to Transfer In/Out of Chair: Moderate Assistance X 1 Exam Const: General: comfortable and no acute distress HENMT: General nose exam: Normal nares present Mouth: Yes moist mucous membranes Eyes: General: appearance normal, both eyes and all related structures Neck: Neck: supple and no JVD Resp: Effort & Inspection: normal respiratory effort Auscultation: clear to auscultation bilaterally Cardio: Rate: regular rate Rhythm: regular rhythm GI: GI Palp: Yes Soft to palpation Auscultation: normal bowel sounds Skin: General skin exam: normal color and no rashes or lesions noted Neuro: Other: patient's aphasia is improving likewise the hemiparesis is also improving Extrem: General: normal to inspection Psych: Other: to be aphasia difficult to assess her mental faculties in the usual Objective Data Vital Signs Vital Signs: Vital Signs - 24 hr 07/24/19 22:00 07/25/19 06:00 Temperature 36.3 C L 36.9 C Pulse Rate 76 61 Respiratory Rate 18 19 Blood Pressure 124/72 135/53 L Pulse Oximetry 98 99 Intake/Output Intake/Output: Intake & Output 07/22/19 07/23/19 07/24/19 07/25/19 23:59 23:59 23:59 23:59 Intake Total 653 413 2171 480 Balance 750 896 5467 480 Meds/Results Medications: Active Medications Generic Name Dose Route Start Last Admin Trade Name Freq PRN Reason Stop Dose Admin Acetaminophen 650 mg 07/14/19 12:47 07/25/19 06:06 Tylenol Tablet PO 650 mg Q4H PRN Administration Pain Albuterol 2 puff 07/14/19 12:47 Proventil Hfa INHALATION Q4H PRN Shortness Of Breath Amlodipine Besylate 10 mg 07/15/19 09:00 07/25/19 09:01 Norvasc PO 10 mg DAILY CHANDRA Administration Docusate Sodium 100 mg 07/14/19 21:00 07/25/19 09:01 Colace Capsule PO 100 mg Q12HR CHANDRA Administration Heparin Sodium (Porcine) 5,000 units 07/14/19 14:00 07/25/19 06:06 Heparin Sodium SUB-Q 5,000 units Q8HR CHANDRA Administration Hydrochlorothiazide 50 mg 07/15/19 09:00 07/25/19 09:01 Hydrochlorothiazide PO 50 mg DAILY CHANDRA Administration Potassium Chloride 20 meq 07/23/19 08:00 07/25/19 09:01 Kcl Tablet PO 20 meq DAILY@0800 CHANDRA Administration Senna 8.6 mg 07/15/19 09:00 07/25/19 09:01 Senokot Tablet PO 08/14/19 09:01 8.6 mg DAILY CHANDRA Administration Progress Note: A&P Assessment and Plan (1) Dysphagia: Code(s): R13.10 - Dysphagia, unspecified Status: Acute (2) Right hemiparesis: Code(s): G81.91 - Hemiplegia, unspecified affecting right dominant side Status: Acute (3) Aphasia: Code(s): R47.01 - Aphasia Status: Acute (4) Hypertension: Code(s): I10 - Essential (primary) hypertension Status: Acute (5) Intracranial hemorrhage: Code(s): I62.9 - Nontraumatic intracranial hemorrhage, unspecified Status: Acute (6) Stroke: Code(s): I63.9 - Cerebral infarction, unspecified Status: Acute Additional Plan for hypokalemia the patient will get the blood work tomorrow to see with the potassium level is rest of the management as before
[2019-07-24 22:00] VITALS: BP 124/72; PULSE 76; RESP 18; TEMP 36.3; O2SAT 98
[2019-07-25 06:00] VITALS: BP 135/53; PULSE 61; RESP 19; TEMP 36.9; O2SAT 99
[2019-07-25] MEDS: ACETAMINOPHEN 325 MG TABLET 650 MG PO ×2 (06:06→21:00)
[2019-07-25] MEDS: HEPARIN SODIUM 5,000 UNITS/ML VIAL 5000 UNITS SUB-Q ×3 (06:06→21:01)
[2019-07-25] MEDS: DOCUSATE SODIUM 100 MG CAPSULE PO ×2 (09:01→21:01)
[2019-07-25] MEDS: POTASSIUM CHLORIDE 20 MEQ TABLET.ER PO (09:01)
[2019-07-25] MEDS: hydroCHLOROthiazide 25 MG TABLET 50 MG PO (09:01)
[2019-07-25] MEDS: SENNOSIDES 8.6 MG TABLET PO (09:01)
[2019-07-25] MEDS: AMLODIPINE BESYLATE 5 MG TABLET 10 MG PO (09:01)
[2019-07-25 14:00] VITALS: BP 149/77; PULSE 60; RESP 18; TEMP 36.4; O2SAT 100
--- NOTE | 2019-07-25 16:00 | WPDNEURORHBP ---
Subjective Date/time seen: 07/25/19 16:00 Interval history: this 59-year-old Afro[place] woman is here after having had left hemispheric basal ganglia bleed which has left her with aphasia and right-sided hemiparesis she is improving slowly and gradually and relatively happy to see the improvement denies any headache nausea vomiting chest pain shortness of breath her ability to swallow is pretty good and have not heard either from her up from the personnel that she is having any difficulty swallowing Review of Systems Review of Systems: All systems reviewed & are unremarkable except as noted in HPI and below Functional Status Ambulation Ability Ability to Ambulate 10 Feet: Maximum Assistance X 1 Ambulation Assistive Devices: Railings Transfers Ability Ability to Transfer In/Out of Chair: Moderate Assistance X 1 Exam Const: General: comfortable and no acute distress HENMT: General nose exam: Normal nares present Mouth: Yes moist mucous membranes Eyes: General: appearance normal, both eyes and all related structures Neck: Neck: supple and no JVD Resp: Effort & Inspection: normal respiratory effort Auscultation: clear to auscultation bilaterally Cardio: Rate: regular rate Rhythm: regular rhythm GI: GI Palp: Yes Soft to palpation Auscultation: normal bowel sounds Skin: General skin exam: normal color and no rashes or lesions noted Neuro: Other: the aphasia is improving likewise the right-sided hemiplegia is improving the visual field defect in the neglect is also improving Extrem: General: normal to inspection Psych: Other: seem to be recognizing the fact that she is getting better and her mood and affect are better Objective Data Vital Signs Vital Signs: Vital Signs - 24 hr 07/24/19 22:00 07/25/19 06:00 07/25/19 14:00 Temperature 36.3 C L 36.9 C 36.4 C Pulse Rate 76 61 60 Respiratory Rate 18 19 18 Blood Pressure 124/72 135/53 L 149/77 H Pulse Oximetry 98 99 100 Intake/Output Intake/Output: Intake & Output 07/22/19 07/23/19 07/24/19 07/25/19 23:59 23:59 23:59 23:59 Intake Total 783 075 4049 480 Balance 116 470 5425 480 Meds/Results Medications: Active Medications Generic Name Dose Route Start Last Admin Trade Name Freq PRN Reason Stop Dose Admin Acetaminophen 650 mg 07/14/19 12:47 07/25/19 06:06 Tylenol Tablet PO 650 mg Q4H PRN Administration Pain Albuterol 2 puff 07/14/19 12:47 Proventil Hfa INHALATION Q4H PRN Shortness Of Breath Amlodipine Besylate 10 mg 07/15/19 09:00 07/25/19 09:01 Norvasc PO 10 mg DAILY CHANDRA Administration Docusate Sodium 100 mg 07/14/19 21:00 07/25/19 09:01 Colace Capsule PO 100 mg Q12HR CHANDRA Administration Heparin Sodium (Porcine) 5,000 units 07/14/19 14:00 07/25/19 14:55 Heparin Sodium SUB-Q 5,000 units Q8HR CHANDRA Administration Hydrochlorothiazide 50 mg 07/15/19 09:00 07/25/19 09:01 Hydrochlorothiazide PO 50 mg DAILY CHANDRA Administration Potassium Chloride 20 meq 07/23/19 08:00 07/25/19 09:01 Kcl Tablet PO 20 meq DAILY@0800 CHANDRA Administration Senna 8.6 mg 07/15/19 09:00 07/25/19 09:01 Senokot Tablet PO 08/14/19 09:01 8.6 mg DAILY CHANDRA Administration Progress Note: A&P Assessment and Plan (1) Dysphagia: Code(s): R13.10 - Dysphagia, unspecified Status: Acute (2) Right hemiparesis: Code(s): G81.91 - Hemiplegia, unspecified affecting right dominant side Status: Acute (3) Aphasia: Code(s): R47.01 - Aphasia Status: Acute (4) Hypertension: Code(s): I10 - Essential (primary) hypertension Status: Acute (5) Intracranial hemorrhage: Code(s): I62.9 - Nontraumatic intracranial hemorrhage, unspecified Status: Acute (6) Stroke: Code(s): I63.9 - Cerebral infarction, unspecified Status: Acute Additional Plan will continue the speech therapy physical therapy occupational therapy
[2019-07-25 22:00] VITALS: BP 129/49; PULSE 65; RESP 16; TEMP 36.3; O2SAT 100
[2019-07-26 04:58] LABS: Blood Urea Nitrogen 25 mg/dL (7-17); Calcium 9.6 mg/dL (8.4-10.2); Carbon Dioxide 26 mmol/L (22-30); Chloride 97 mmol/L (98-107); Estimated CRCL calculation 80 ml/min; Estimated Glomerular Filt Rate > 60; Glucose 114 mg/dL (65-105); Potassium 2.9 mmol/L (3.4-5.0); Sodium 132 mmol/L (137-145)
[2019-07-26 06:00] VITALS: BP 133/55; PULSE 57; RESP 16; TEMP 36.3; O2SAT 97
[2019-07-26] MEDS: HEPARIN SODIUM 5,000 UNITS/ML VIAL 5000 UNITS SUB-Q ×3 (06:05→21:06)
[2019-07-26] MEDS: AMLODIPINE BESYLATE 5 MG TABLET 10 MG PO (08:42)
[2019-07-26] MEDS: POTASSIUM CHLORIDE 20 MEQ TABLET.ER PO (08:42)
[2019-07-26] MEDS: hydroCHLOROthiazide 25 MG TABLET 50 MG PO (08:43)
[2019-07-26] MEDS: DOCUSATE SODIUM 100 MG CAPSULE PO ×2 (08:43→21:06)
[2019-07-26] MEDS: SENNOSIDES 8.6 MG TABLET PO (08:46)
[2019-07-26 14:00] VITALS: BP 138/56; PULSE 68; RESP 18; TEMP 36.6; O2SAT 97
[2019-07-26] MEDS: ACETAMINOPHEN 325 MG TABLET 650 MG PO (21:06)
[2019-07-26 22:00] VITALS: BP 143/65; PULSE 60; RESP 17; TEMP 36.6; O2SAT 99
[2019-07-27 05:38] LABS: Blood Urea Nitrogen 23 mg/dL (7-17); Calcium 9.8 mg/dL (8.4-10.2); Carbon Dioxide 29 mmol/L (22-30); Chloride 98 mmol/L (98-107); Estimated CRCL calculation 90 ml/min; Estimated Glomerular Filt Rate > 60; Glucose 115 mg/dL (65-105); Sodium 135 mmol/L (137-145)
[2019-07-27] MEDS: HEPARIN SODIUM 5,000 UNITS/ML VIAL 5000 UNITS SUB-Q ×3 (05:56→22:11)
[2019-07-27 06:00] VITALS: BP 133/59; PULSE 60; RESP 17; TEMP 36.1; O2SAT 99
[2019-07-27] MEDS: AMLODIPINE BESYLATE 5 MG TABLET 10 MG PO (11:12)
[2019-07-27] MEDS: hydroCHLOROthiazide 25 MG TABLET 50 MG PO (11:12)
[2019-07-27] MEDS: DOCUSATE SODIUM 100 MG CAPSULE PO ×2 (11:12→22:09)
[2019-07-27] MEDS: SENNOSIDES 8.6 MG TABLET PO (11:12)
[2019-07-27] MEDS: POTASSIUM CHLORIDE 20 MEQ TABLET.ER 40 MEQ PO (11:13)
[2019-07-27 14:00] VITALS: BP 137/56; PULSE 71; RESP 20; TEMP 36.2; O2SAT 99
--- NOTE | 2019-07-27 14:01 | WPDNEURORHBP ---
Subjective Date/time seen: 07/27/19 14:01 Interval history: this 59-year-old is here after having had the left hemispheric intracranial bleed which has left her with aphasia and right-sided hemiparesis she seems to be depressed and her mental status fluctuates even several times during the day aphasia is slowly improving right-sided hemiparesis is also improving otherwise she is denying any headache nausea vomiting chest pain shortness of breath fever chills or sore throat Review of Systems Review of Systems: All systems reviewed & are unremarkable except as noted in HPI and below Functional Status Ambulation Ability Ability to Ambulate 10 Feet: Maximum Assistance X 1 Ambulation Assistive Devices: Railings Transfers Ability Ability to Transfer In/Out of Chair: Moderate Assistance X 1 Exam Const: General: comfortable and no acute distress HENMT: General nose exam: Normal nares present Mouth: Yes moist mucous membranes Eyes: General: appearance normal, both eyes and all related structures Neck: Neck: supple and no JVD Resp: Effort & Inspection: normal respiratory effort Auscultation: clear to auscultation bilaterally Cardio: Rate: regular rate Rhythm: regular rhythm GI: GI Palp: Yes Soft to palpation Auscultation: normal bowel sounds Skin: General skin exam: normal color and no rashes or lesions noted Neuro: Other: patient's aphasia is improving likewise right-sided hemiparesis is improving Extrem: General: normal to inspection Psych: Other: patient seems to be depressed will need or add Lexapro Objective Data Vital Signs Vital Signs: Vital Signs - 24 hr 07/26/19 22:00 07/27/19 06:00 Temperature 36.6 C 36.1 C L Pulse Rate 60 60 Respiratory Rate 17 17 Blood Pressure 143/65 H 133/59 L Pulse Oximetry 99 99 Intake/Output Intake/Output: Intake & Output 07/24/19 07/25/19 07/26/19 07/27/19 23:59 23:59 23:59 23:59 Intake Total 1200 720 600 480 Balance 1200 720 600 480 Meds/Results Medications: Active Medications Generic Name Dose Route Start Last Admin Trade Name Freq PRN Reason Stop Dose Admin Acetaminophen 650 mg 07/14/19 12:47 07/26/19 21:06 Tylenol Tablet PO 650 mg Q4H PRN Administration Pain Albuterol 2 puff 07/14/19 12:47 Proventil Hfa INHALATION Q4H PRN Shortness Of Breath Amlodipine Besylate 10 mg 07/15/19 09:00 07/27/19 11:12 Norvasc PO 10 mg DAILY CHANDRA Administration Docusate Sodium 100 mg 07/14/19 21:00 07/27/19 11:12 Colace Capsule PO 100 mg Q12HR CHANDRA Administration Heparin Sodium (Porcine) 5,000 units 07/14/19 14:00 07/27/19 05:56 Heparin Sodium SUB-Q 5,000 units Q8HR CHANDRA Administration Hydrochlorothiazide 50 mg 07/15/19 09:00 07/27/19 11:12 Hydrochlorothiazide PO 50 mg DAILY CHANDRA Administration Lactulose 30 gm 07/27/19 09:13 Lactulose PO QAM PRN Constipation Potassium Chloride 40 meq 07/27/19 09:05 07/27/19 11:13 Kcl Tablet PO 40 meq DAILY@0800 CHANDRA Administration Senna 8.6 mg 07/15/19 09:00 07/27/19 11:12 Senokot Tablet PO 08/14/19 09:01 8.6 mg DAILY CHANDRA Administration Labs Labs: Laboratory Results - last 24 hr 07/27/19 05:07 Sodium 135 L Potassium 3.0 L Chloride 98 Carbon Dioxide 29 BUN 23 H Creatinine 0.80 Estim Creat Clear Calc 90 Estimated GFR > 60 Glucose 115 H Calcium 9.8 Progress Note: A&P Assessment and Plan (1) Hypokalemia: Code(s): E87.6 - Hypokalemia Status: Acute (2) Dysphagia: Code(s): R13.10 - Dysphagia, unspecified Status: Acute (3) Right hemiparesis: Code(s): G81.91 - Hemiplegia, unspecified affecting right dominant side Status: Acute (4) Aphasia: Code(s): R47.01 - Aphasia Status: Acute (5) Hypertension: Code(s): I10 - Essential (primary) hypertension Status: Acute (6) Intracranial hemorrhage: Code(s): I62.9 - Nontrau
[2019-07-27 22:00] VITALS: BP 123/51; PULSE 70; RESP 18; TEMP 37; O2SAT 100
[2019-07-27] MEDS: ACETAMINOPHEN 325 MG TABLET 650 MG PO (22:12)
[2019-07-28] MEDS: HEPARIN SODIUM 5,000 UNITS/ML VIAL 5000 UNITS SUB-Q ×3 (05:41→21:25)
[2019-07-28 06:00] VITALS: BP 126/55; PULSE 60; RESP 18; TEMP 37; O2SAT 100
[2019-07-28] MEDS: AMLODIPINE BESYLATE 5 MG TABLET 10 MG PO (09:06)
[2019-07-28] MEDS: hydroCHLOROthiazide 25 MG TABLET 50 MG PO (09:07)
[2019-07-28] MEDS: DOCUSATE SODIUM 100 MG CAPSULE PO ×2 (09:07→21:23)
[2019-07-28] MEDS: SENNOSIDES 8.6 MG TABLET PO (09:09)
--- NOTE | 2019-07-28 11:48 | PCDIET ---
Nutrition Follow-Up Complete: Nutrition Diagnosis: Decreased fat/sodium needs related to cardiovascular disease as evidenced by CVA. Nutrition Goal: Patient to consume 50% of meals or greater. Goal met. Patient consumed average of 58% of meals since last review. Diet is heart healthy which is appropriate. Recommend continuing Thrive Ice Cream BID to supplement intakes. Last recorded weight is 124.8 kg. Recommend obtaining new weight. Bowel Motility: +BM 07/27/19 per nurse aid. Labs Reviewed: Glu (115), BUN (23), K (3.0), Na (135) Meds Noted: Albuterol, Colace, Hydrochlorothiazide, Lactulose, KCl, Senna Additional Notes: No documented skin breakdown. Will continue to monitor with same goals. Nutrition Monitoring and Evaluation: Follow up every 5 days.
--- NOTE | 2019-07-28 12:43 | WPDNEURORHBP ---
Subjective Date/time seen: 07/28/19 12:43 Interval history: this 59-year-old Afro [place] woman suffered from left hemispheric rather large hemorrhage which has left her with aphasia and right-sided hemiparesis from which she is improving today she is smiling and seems to be better working with the speech therapy and making tremendous progress in her speech and language function denies any headache nausea vomiting chest pain shortness of breath fever chills sore throat Review of Systems Review of Systems: All systems reviewed & are unremarkable except as noted in HPI and below Functional Status Ambulation Ability Ability to Ambulate 10 Feet: Maximum Assistance X 1 Ambulation Assistive Devices: Railings Transfers Ability Ability to Transfer In/Out of Chair: Moderate Assistance X 1 Exam Const: General: comfortable and no acute distress HENMT: General nose exam: Normal nares present Mouth: Yes moist mucous membranes Eyes: General: appearance normal, both eyes and all related structures Neck: Neck: supple and no JVD Resp: Effort & Inspection: normal respiratory effort Auscultation: clear to auscultation bilaterally Cardio: Rate: regular rate Rhythm: regular rhythm GI: GI Palp: Yes Soft to palpation Auscultation: normal bowel sounds Skin: General skin exam: normal color and no rashes or lesions noted Neuro: Other: aphasia is improving right-sided hemiparesis is improving the patient is happy are in a better mood and working with therapy quite well Extrem: General: normal to inspection Psych: Other: aphasia is improving and her mood and affect are better Objective Data Vital Signs Vital Signs: Vital Signs - 24 hr 07/27/19 14:00 07/27/19 22:00 07/28/19 06:00 Temperature 36.2 C L 37.0 C 37.0 C Pulse Rate 71 70 60 Respiratory Rate 20 18 18 Blood Pressure 137/56 L 123/51 L 126/55 L Pulse Oximetry 99 100 100 Intake/Output Intake/Output: Intake & Output 07/25/19 07/26/19 07/27/19 07/28/19 23:59 23:59 23:59 23:59 Intake Total 720 600 720 200 Balance 720 600 720 200 Meds/Results Medications: Active Medications Generic Name Dose Route Start Last Admin Trade Name Freq PRN Reason Stop Dose Admin Acetaminophen 650 mg 07/14/19 12:47 07/27/19 22:12 Tylenol Tablet PO 650 mg Q4H PRN Administration Pain Albuterol 2 puff 07/14/19 12:47 Proventil Hfa INHALATION Q4H PRN Shortness Of Breath Amlodipine Besylate 10 mg 07/15/19 09:00 07/28/19 09:06 Norvasc PO 10 mg DAILY CHANDRA Administration Docusate Sodium 100 mg 07/14/19 21:00 07/28/19 09:07 Colace Capsule PO 100 mg Q12HR CHANDRA Administration Heparin Sodium (Porcine) 5,000 units 07/14/19 14:00 07/28/19 05:41 Heparin Sodium SUB-Q 5,000 units Q8HR CHANDRA Administration Hydrochlorothiazide 50 mg 07/15/19 09:00 07/28/19 09:07 Hydrochlorothiazide PO 50 mg DAILY CHANDRA Administration Lactulose 30 gm 07/27/19 09:13 Lactulose PO QAM PRN Constipation Potassium Chloride 40 meq 07/27/19 09:05 07/27/19 11:13 Kcl Tablet PO 40 meq DAILY@0800 CHANDRA Administration Senna 8.6 mg 07/15/19 09:00 07/28/19 09:09 Senokot Tablet PO 08/14/19 09:01 8.6 mg DAILY CHANDRA Administration Progress Note: A&P Assessment and Plan (1) Hypokalemia: Code(s): E87.6 - Hypokalemia Status: Acute (2) Dysphagia: Code(s): R13.10 - Dysphagia, unspecified Status: Acute (3) Right hemiparesis: Code(s): G81.91 - Hemiplegia, unspecified affecting right dominant side Status: Acute (4) Aphasia: Code(s): R47.01 - Aphasia Status: Acute (5) Hypertension: Code(s): I10 - Essential (primary) hypertension Status: Acute (6) Intracranial hemorrhage: Code(s): I62.9 - Nontraumatic intracranial hemorrhage, unspecified Status: Acute (7) Stroke: Code(s): I63.9 - Cerebral infarction, unspecified Status:
[2019-07-28] MEDS: POTASSIUM CHLORIDE 20 MEQ TABLET.ER 40 MEQ PO (12:49)
[2019-07-28 14:00] VITALS: BP 138/61; PULSE 74; RESP 18; TEMP 36.8; O2SAT 98
[2019-07-28] MEDS: ACETAMINOPHEN 325 MG TABLET 650 MG PO (19:51)
[2019-07-28 20:00] VITALS: BP 114/48; PULSE 66; RESP 16; TEMP 37.3; O2SAT 97
[2019-07-28 23:24] VITALS: TEMP 37.2
[2019-07-29 04:48] LABS: Basophils Percent Auto 0.8 % (0.2-1.2); Eosinophils Absolute Auto 0.2 K/mm3 (0-0.3); Eosinophils Percent Auto 3.4 % (0-4.4); Hematocrit 39.3 % (37.0-47.0); Immature Granulocyte Absolute 0.01 K/mm3 (0.00-0.031); Immature Granulocyte Percent A 0.2 % (0-0.5); Lymphocytes Absolute Auto 1.91 K/mm3 (0.9-3.2); Mean Corpuscular HGB Conc 33.1 g/dl (32-36); Mean Corpuscular Hemoglobin 30.3 pg (26-34); Mean Corpuscular Volume 91.6 fl (80-100); Mean Platelet Volume 12.3 fl (7.4-10.4); Monocytes Absolute Auto 0.7 K/mm3 (0.1-0.6); Monocytes Percent Auto 12.4 % (2.6-8.5); Neutrophils Absolute Auto 2.5 K/mm3 (1.3-6.7); Neutrophils Percent Auto 47.2 % (45.5-73.1); Platelet Count Result 192 k/mm3 (150-375); Red Blood Count 4.29 M/mm3 (4.2-5.4); Red Cell Distribution Width 12.8 % (11.5-14.5); White Blood Count 5.3 K/mm3 (4.5-10.0)
[2019-07-29 05:03] LABS: Blood Urea Nitrogen 23 mg/dL (7-17); Calcium 9.7 mg/dL (8.4-10.2); Carbon Dioxide 29 mmol/L (22-30); Chloride 100 mmol/L (98-107); Estimated CRCL calculation 90 ml/min; Estimated Glomerular Filt Rate > 60; Glucose 115 mg/dL (65-105); Potassium 2.9 mmol/L (3.4-5.0); Sodium 138 mmol/L (137-145)
[2019-07-29 06:00] VITALS: BP 133/61; PULSE 57; RESP 16; TEMP 36.9; O2SAT 98
[2019-07-29] MEDS: HEPARIN SODIUM 5,000 UNITS/ML VIAL 5000 UNITS SUB-Q ×3 (06:36→21:38)
[2019-07-29] MEDS: AMLODIPINE BESYLATE 5 MG TABLET 10 MG PO (09:35)
[2019-07-29] MEDS: SENNOSIDES 8.6 MG TABLET PO (09:35)
[2019-07-29] MEDS: DOCUSATE SODIUM 100 MG CAPSULE PO ×2 (09:35→21:37)
[2019-07-29] MEDS: POTASSIUM CHLORIDE 20 MEQ TABLET.ER 40 MEQ PO (09:35)
[2019-07-29] MEDS: hydroCHLOROthiazide 25 MG TABLET 50 MG PO (09:35)
--- NOTE | 2019-07-29 11:46 | WPDNEURORHBP ---
Subjective Date/time seen: 07/29/19 11:46 Interval history: this 59-year-old woman is here after having had a large left hemispheric basal ganglia hemorrhage which had left her with the significant aphasia and right-sided hemiplegia from which she is improving the medical issues she has been facing is hypokalemia for which she is going to see for K-Dur today and I will increase the potassium supplement to 60 milligrams daily and follow-up with the BMP otherwise overall neurological status improving she denies any headache nausea vomiting chest pain or shortness of breath fever chills or sore throat Review of Systems Review of Systems: All systems reviewed & are unremarkable except as noted in HPI and below Functional Status Ambulation Ability Ability to Ambulate 10 Feet: Maximum Assistance X 1 Ambulation Assistive Devices: Railings Transfers Ability Ability to Transfer In/Out of Chair: Moderate Assistance X 1 Exam Const: General: comfortable and no acute distress HENMT: General nose exam: Normal nares present Mouth: Yes moist mucous membranes Eyes: General: appearance normal, both eyes and all related structures Neck: Neck: supple and no JVD Resp: Effort & Inspection: normal respiratory effort Auscultation: clear to auscultation bilaterally Cardio: Rate: regular rate Rhythm: regular rhythm GI: GI Palp: Yes Soft to palpation Auscultation: normal bowel sounds Skin: General skin exam: normal color and no rashes or lesions noted Neuro: Other: patient's aphasia is improving and right-sided hemiparesis is improving she has needing less assistance in performing her activities of daily living overall seems to be progressing fairly decently and well Extrem: General: normal to inspection Psych: Other: patient is smiling sees that there is improvement and her mood and affect is much better Objective Data Vital Signs Vital Signs: Vital Signs - 24 hr 07/29/19 14:00 07/29/19 22:00 07/30/19 06:00 Temperature 36.2 C L 36.7 C 36.8 C Pulse Rate 98 63 69 Respiratory Rate 19 20 18 Blood Pressure 147/83 H 136/53 L 132/58 L Pulse Oximetry 100 100 99 Intake/Output Intake/Output: Intake & Output 07/27/19 07/28/19 07/29/19 07/30/19 23:59 23:59 23:59 23:59 Intake Total 720 500 960 240 Balance 720 500 960 240 Meds/Results Medications: Active Medications Generic Name Dose Route Start Last Admin Trade Name Tanvirq PRN Reason Stop Dose Admin Acetaminophen 650 mg 07/14/19 12:47 07/28/19 19:51 Tylenol Tablet PO 650 mg Q4H PRN Administration Pain Albuterol 2 puff 07/14/19 12:47 Proventil Hfa INHALATION Q4H PRN Shortness Of Breath Amlodipine Besylate 10 mg 07/15/19 09:00 07/30/19 09:08 Norvasc PO 10 mg DAILY CHANDRA Administration Docusate Sodium 100 mg 07/14/19 21:00 07/30/19 09:08 Colace Capsule PO 100 mg Q12HR CHANDRA Administration Heparin Sodium (Porcine) 5,000 units 07/14/19 14:00 07/30/19 05:46 Heparin Sodium SUB-Q 5,000 units Q8HR CHANDRA Administration Hydrochlorothiazide 50 mg 07/15/19 09:00 07/30/19 09:08 Hydrochlorothiazide PO 50 mg DAILY CHANDRA Administration Lactulose 30 gm 07/27/19 09:13 Lactulose PO QAM PRN Constipation Potassium Chloride 60 meq 07/30/19 08:00 07/30/19 09:07 Kcl Tablet PO 60 meq DAILY@0800 CHANDRA Administration Senna 8.6 mg 07/15/19 09:00 07/30/19 09:08 Senokot Tablet PO 08/14/19 09:01 8.6 mg DAILY CHANDRA Administration Labs Labs: Laboratory Results - last 24 hr 07/30/19 04:36 Sodium 136 L Potassium 3.2 L Chloride 101 Carbon Dioxide 25 BUN 16 Creatinine 0.70 Estim Creat Clear Calc 101 Estimated GFR > 60 Glucose 104 Calcium 9.5 Progress Note: A&P Assessment and Plan (1) Hypokalemia: Code(s): E87.6 - Hypokalemia Status: Acute (2) Dysphagia: Code(s): R13.10 - Dysphagia, unspecified Status: Acute (3) Right hemiparesis:
[2019-07-29 14:00] VITALS: BP 147/83; PULSE 98; RESP 19; TEMP 36.2; O2SAT 100
[2019-07-29 22:00] VITALS: BP 136/53; PULSE 63; RESP 20; TEMP 36.7; O2SAT 100
[2019-07-30 05:12] LABS: Blood Urea Nitrogen 16 mg/dL (7-17); Calcium 9.5 mg/dL (8.4-10.2); Carbon Dioxide 25 mmol/L (22-30); Chloride 101 mmol/L (98-107); Estimated CRCL calculation 101 ml/min; Estimated Glomerular Filt Rate > 60; Glucose 104 mg/dL (65-105); Potassium 3.2 mmol/L (3.4-5.0); Sodium 136 mmol/L (137-145)
[2019-07-30] MEDS: HEPARIN SODIUM 5,000 UNITS/ML VIAL 5000 UNITS SUB-Q ×3 (05:46→21:03)
[2019-07-30 06:00] VITALS: BP 132/58; PULSE 69; RESP 18; TEMP 36.8; O2SAT 99
[2019-07-30] MEDS: POTASSIUM CHLORIDE 20 MEQ TABLET.ER 60 MEQ PO (09:07)
[2019-07-30] MEDS: hydroCHLOROthiazide 25 MG TABLET 50 MG PO (09:08)
[2019-07-30] MEDS: DOCUSATE SODIUM 100 MG CAPSULE PO ×2 (09:08→21:03)
[2019-07-30] MEDS: AMLODIPINE BESYLATE 5 MG TABLET 10 MG PO (09:08)
[2019-07-30] MEDS: SENNOSIDES 8.6 MG TABLET PO (09:08)
--- NOTE | 2019-07-30 13:55 | WPDNEURORHBP ---
Subjective Date/time seen: 07/30/19 13:55 Interval history: this 59-year-old Afro-[place] woman is here of training had left hemispheric bleed which has left her with the aphasia and right-sided hemiplegia from both of which she is improving her hypokalemia is also improving after receiving the K rider she denies any headache nausea vomiting chest pain or shortness of breath fever chills or sore throat Review of Systems Review of Systems: All systems reviewed & are unremarkable except as noted in HPI and below Functional Status Ambulation Ability Ability to Ambulate 10 Feet: Maximum Assistance X 1 Ambulation Assistive Devices: Railings Transfers Ability Ability to Transfer In/Out of Chair: Moderate Assistance X 1 Exam Const: General: comfortable and no acute distress HENMT: General nose exam: Normal nares present Mouth: Yes moist mucous membranes Eyes: General: appearance normal, both eyes and all related structures Neck: Neck: supple and no JVD Resp: Effort & Inspection: normal respiratory effort Auscultation: clear to auscultation bilaterally Cardio: Rate: regular rate Rhythm: regular rhythm GI: GI Palp: Yes Soft to palpation Skin: General skin exam: normal color and no rashes or lesions noted Neuro: Other: patient is awake alert aphasia is improving right-sided hemiplegia is improving rather slowly Extrem: General: normal to inspection Psych: Other: her affect is better she is smiling and able to follow commands quite well Objective Data Vital Signs Vital Signs: Vital Signs - 24 hr 07/29/19 14:00 07/29/19 22:00 07/30/19 06:00 Temperature 36.2 C L 36.7 C 36.8 C Pulse Rate 98 63 69 Respiratory Rate 19 20 18 Blood Pressure 147/83 H 136/53 L 132/58 L Pulse Oximetry 100 100 99 Intake/Output Intake/Output: Intake & Output 07/27/19 07/28/19 07/29/19 07/30/19 23:59 23:59 23:59 23:59 Intake Total 720 500 960 480 Balance 720 500 960 480 Meds/Results Medications: Active Medications Generic Name Dose Route Start Last Admin Trade Name Freq PRN Reason Stop Dose Admin Acetaminophen 650 mg 07/14/19 12:47 07/28/19 19:51 Tylenol Tablet PO 650 mg Q4H PRN Administration Pain Albuterol 2 puff 07/14/19 12:47 Proventil Hfa INHALATION Q4H PRN Shortness Of Breath Amlodipine Besylate 10 mg 07/15/19 09:00 07/30/19 09:08 Norvasc PO 10 mg DAILY CHANDRA Administration Docusate Sodium 100 mg 07/14/19 21:00 07/30/19 09:08 Colace Capsule PO 100 mg Q12HR CHANDRA Administration Heparin Sodium (Porcine) 5,000 units 07/14/19 14:00 07/30/19 13:40 Heparin Sodium SUB-Q 5,000 units Q8HR CHANDRA Administration Hydrochlorothiazide 50 mg 07/15/19 09:00 07/30/19 09:08 Hydrochlorothiazide PO 50 mg DAILY CHANDRA Administration Lactulose 30 gm 07/27/19 09:13 Lactulose PO QAM PRN Constipation Potassium Chloride 60 meq 07/30/19 08:00 07/30/19 09:07 Kcl Tablet PO 60 meq DAILY@0800 CHANDRA Administration Senna 8.6 mg 07/15/19 09:00 07/30/19 09:08 Senokot Tablet PO 08/14/19 09:01 8.6 mg DAILY CHANDRA Administration Labs Labs: Laboratory Results - last 24 hr 07/30/19 04:36 Sodium 136 L Potassium 3.2 L Chloride 101 Carbon Dioxide 25 BUN 16 Creatinine 0.70 Estim Creat Clear Calc 101 Estimated GFR > 60 Glucose 104 Calcium 9.5 Progress Note: A&P Assessment and Plan (1) Hypokalemia: Code(s): E87.6 - Hypokalemia Status: Acute (2) Right hemiparesis: Code(s): G81.91 - Hemiplegia, unspecified affecting right dominant side Status: Acute (3) Aphasia: Code(s): R47.01 - Aphasia Status: Acute (4) Hypertension: Code(s): I10 - Essential (primary) hypertension Status: Acute (5) Intracranial hemorrhage: Code(s): I62.9 - Nontraumatic intracranial hemorrhage, unspecified Status: Acute (6) Stroke: Code(s): I63.9 - Cerebral infar
[2019-07-30 14:00] VITALS: BP 132/62; PULSE 68; RESP 17; TEMP 36.2; O2SAT 100
[2019-07-30] MEDS: ACETAMINOPHEN 325 MG TABLET 650 MG PO (21:03)
[2019-07-30 21:53] VITALS: BP 137/50; PULSE 68; RESP 18; TEMP 36.6; O2SAT 97
[2019-07-31 04:50] LABS: Blood Urea Nitrogen 18 mg/dL (7-17); Calcium 9.8 mg/dL (8.4-10.2); Carbon Dioxide 23 mmol/L (22-30); Chloride 104 mmol/L (98-107); Estimated CRCL calculation 101 ml/min; Estimated Glomerular Filt Rate > 60; Glucose 111 mg/dL (65-105); Potassium 3.6 mmol/L (3.4-5.0); Sodium 136 mmol/L (137-145)
[2019-07-31 06:00] VITALS: BP 136/53; PULSE 60; RESP 16; TEMP 36; O2SAT 99
[2019-07-31] MEDS: HEPARIN SODIUM 5,000 UNITS/ML VIAL 5000 UNITS SUB-Q ×3 (06:06→21:10)
[2019-07-31 08:00] VITALS: PULSE 60; RESP 16; O2SAT 99
[2019-07-31] MEDS: AMLODIPINE BESYLATE 5 MG TABLET 10 MG PO (09:25)
[2019-07-31] MEDS: DOCUSATE SODIUM 100 MG CAPSULE PO ×2 (09:25→21:12)
[2019-07-31] MEDS: POTASSIUM CHLORIDE 20 MEQ TABLET.ER 60 MEQ PO (09:25)
[2019-07-31] MEDS: hydroCHLOROthiazide 25 MG TABLET 50 MG PO (09:26)
[2019-07-31] MEDS: SENNOSIDES 8.6 MG TABLET PO (09:26)
[2019-07-31 13:55] VITALS: BP 135/61; PULSE 64; RESP 20; TEMP 36.5; O2SAT 100
[2019-07-31 21:00] VITALS: BP 147/61; PULSE 64; RESP 16; TEMP 36.9; O2SAT 100
[2019-07-31] MEDS: ACETAMINOPHEN 325 MG TABLET 650 MG PO (21:12)
[2019-08-01] MEDS: HEPARIN SODIUM 5,000 UNITS/ML VIAL 5000 UNITS SUB-Q ×3 (05:40→20:09)
[2019-08-01 05:47] VITALS: BP 136/53; PULSE 59; RESP 18; TEMP 36.6; O2SAT 100
[2019-08-01 08:00] VITALS: PULSE 59; RESP 18; O2SAT 100
[2019-08-01] MEDS: POTASSIUM CHLORIDE 20 MEQ TABLET.ER 60 MEQ PO (09:56)
[2019-08-01] MEDS: AMLODIPINE BESYLATE 5 MG TABLET 10 MG PO (09:57)
[2019-08-01] MEDS: hydroCHLOROthiazide 25 MG TABLET 50 MG PO (09:58)
[2019-08-01] MEDS: SENNOSIDES 8.6 MG TABLET PO (09:58)
[2019-08-01] MEDS: DOCUSATE SODIUM 100 MG CAPSULE PO ×2 (09:58→20:08)
--- NOTE | 2019-08-01 10:46 | WPDNEURORHBP ---
Subjective Date/time seen: S/P left hemispheric bleed with right hemiplegia and now normal [id number]/26/20 10:46 Review of Systems Review of Systems: All systems reviewed & are unremarkable except as noted in HPI and below Functional Status Ambulation Ability Ability to Ambulate 10 Feet: Moderate Assistance X 1 Ambulation Assistive Devices: Railings Transfers Ability Ability to Transfer In/Out of Chair: Moderate Assistance X 1 Exam Const: General: cooperative, comfortable and no acute distress HENMT: Head: normal to inspection Neck: Neck: full ROM and no lymphadenopathy Resp: Effort & Inspection: normal respiratory effort Auscultation: clear to auscultation bilaterally Cardio: Rate: regular rate Rhythm: regular rhythm GI: Auscultation: normal bowel sounds Skin: General skin exam: no rashes or lesions noted Neuro: Cranial nerves: Yes Equal, round and reactive pupils present, Yes Bilaterally intact EOM present, Yes Nystagmus not present, Yes facial symmetry (asymmetrical) and Yes Midline tongue present Speech: Expressive aphasia present (aphasic) Motor exam (neuro): Abnormal motor strength present (right hemiplegia) Objective Data Vital Signs Vital Signs: Vital Signs - 24 hr 07/31/19 13:55 07/31/19 21:00 08/01/19 05:47 Temperature 36.5 C 36.9 C 36.6 C Pulse Rate 64 64 59 L Respiratory Rate 20 16 18 Blood Pressure 135/61 147/61 H 136/53 L Pulse Oximetry 100 100 100 Intake/Output Intake/Output: Intake & Output 07/29/19 07/30/19 07/31/19 08/01/19 23:59 23:59 23:59 23:59 Intake Total 960 720 600 Balance 960 720 600 Meds/Results Medications: Active Medications Generic Name Dose Route Start Last Admin Trade Name Freq PRN Reason Stop Dose Admin Acetaminophen 650 mg 07/14/19 12:47 07/31/19 21:12 Tylenol Tablet PO 650 mg Q4H PRN Administration Pain Albuterol 2 puff 07/14/19 12:47 Proventil Hfa INHALATION Q4H PRN Shortness Of Breath Amlodipine Besylate 10 mg 07/15/19 09:00 08/01/19 09:57 Norvasc PO 10 mg DAILY CHANDRA Administration Docusate Sodium 100 mg 07/14/19 21:00 08/01/19 09:58 Colace Capsule PO 100 mg Q12HR CHANDRA Administration Heparin Sodium (Porcine) 5,000 units 07/14/19 14:00 08/01/19 05:40 Heparin Sodium SUB-Q 5,000 units Q8HR CHANDRA Administration Hydrochlorothiazide 50 mg 07/15/19 09:00 08/01/19 09:58 Hydrochlorothiazide PO 50 mg DAILY CHANDRA Administration Lactulose 30 gm 07/27/19 09:13 Lactulose PO QAM PRN Constipation Potassium Chloride 60 meq 07/30/19 08:00 08/01/19 09:56 Kcl Tablet PO 60 meq DAILY@0800 CHANDRA Administration Senna 8.6 mg 07/15/19 09:00 08/01/19 09:58 Senokot Tablet PO 08/14/19 09:01 8.6 mg DAILY CHANDRA Administration Progress Note: A&P Assessment and Plan (1) Hypokalemia: Code(s): E87.6 - Hypokalemia Status: Acute (2) Dysphagia: Code(s): R13.10 - Dysphagia, unspecified Status: Acute (3) Right hemiparesis: Code(s): G81.91 - Hemiplegia, unspecified affecting right dominant side Status: Acute (4) Aphasia: Code(s): R47.01 - Aphasia Status: Acute (5) Hypertension: Code(s): I10 - Essential (primary) hypertension Status: Acute (6) Intracranial hemorrhage: Code(s): I62.9 - Nontraumatic intracranial hemorrhage, unspecified Status: Acute (7) Stroke: Code(s): I63.9 - Cerebral infarction, unspecified Status: Acute Additional Plan stable
[2019-08-01 13:18] VITALS: TEMP 36.6
[2019-08-01] MEDS: ACETAMINOPHEN 325 MG TABLET 650 MG PO ×2 (13:18→20:07)
[2019-08-01 14:00] VITALS: BP 136/64; PULSE 58; RESP 20; TEMP 36.4; O2SAT 99
[2019-08-01 22:00] VITALS: BP 153/55; PULSE 60; RESP 18; TEMP 37; O2SAT 100
[2019-08-02] MEDS: HEPARIN SODIUM 5,000 UNITS/ML VIAL 5000 UNITS SUB-Q ×3 (05:28→21:31)
[2019-08-02 06:00] VITALS: BP 151/56; PULSE 62; RESP 18; TEMP 36.8; O2SAT 100
[2019-08-02] MEDS: AMLODIPINE BESYLATE 5 MG TABLET 10 MG PO (10:27)
[2019-08-02] MEDS: POTASSIUM CHLORIDE 20 MEQ TABLET.ER 60 MEQ PO (10:27)
[2019-08-02] MEDS: DOCUSATE SODIUM 100 MG CAPSULE PO ×2 (10:27→21:31)
[2019-08-02] MEDS: hydroCHLOROthiazide 25 MG TABLET 50 MG PO (10:28)
[2019-08-02] MEDS: SENNOSIDES 8.6 MG TABLET PO (10:28)
--- NOTE | 2019-08-02 11:28 | PCNFU ---
Nutrition Follow-Up Complete: Decreased fat/sodium needs related to cardiovascular disease as evidenced by CVA. goal: Patient to consume 50% of meals or greater. Patient is progressing towards goal. We will continue current goal. Pt current nutrition is Heart Healthy. Nutrition recommendation: Healthy Healthy Last recorded weight is 124.8 kg. Bowel Motility:+BM noted 07/31. Labs Reviewed:No new labs to report Meds Noted:Norvasc,Colace, Heparin, Senna Additional Notes: Spoke with nursing today regarding patient follow up due to COVID 19 precautions. Patient eating 50-100% of a heart healthy diet. Oral Supplement BID of Thrive Ice Cream providing an additional 270 kcals and 9 gms protein. Agree with diet orders and supplements. Monitoring: Follow up every 5 days.
[2019-08-02 14:00] VITALS: BP 123/59; PULSE 76; RESP 20; TEMP 36.5; O2SAT 100
[2019-08-02] MEDS: ACETAMINOPHEN 325 MG TABLET 650 MG PO (21:33)
[2019-08-02 22:00] VITALS: BP 147/64; PULSE 61; RESP 16; TEMP 36.1; O2SAT 100
[2019-08-03 06:00] VITALS: BP 161/88; PULSE 75; RESP 18; TEMP 36; O2SAT 99
[2019-08-03] MEDS: HEPARIN SODIUM 5,000 UNITS/ML VIAL 5000 UNITS SUB-Q ×3 (06:23→20:56)
[2019-08-03] MEDS: ACETAMINOPHEN 325 MG TABLET 650 MG PO (06:27)
[2019-08-03 08:00] VITALS: PULSE 75; RESP 18; O2SAT 99
[2019-08-03] MEDS: hydroCHLOROthiazide 25 MG TABLET 50 MG PO (09:07)
[2019-08-03] MEDS: POTASSIUM CHLORIDE 20 MEQ TABLET.ER 60 MEQ PO (09:07)
[2019-08-03] MEDS: DOCUSATE SODIUM 100 MG CAPSULE PO ×2 (09:07→20:55)
[2019-08-03] MEDS: AMLODIPINE BESYLATE 5 MG TABLET 10 MG PO (09:07)
[2019-08-03] MEDS: SENNOSIDES 8.6 MG TABLET PO (09:08)
--- NOTE | 2019-08-03 09:44 | PCPTNOTE ---
Sun Cha was evaluated for a hospital bed on 08/03/2019 by this physical therapist. The hospital bed will resolve patient's bed mobility limitations and will be used for ADL's. It is recommended that the patient receive a semi-electric hospital bed in order to elevate the head of bed to ensure safety with swallowing/eating to prevent aspiration. A hospital bed is also recommended in order to assist with optimal positioning of patient during ADL's and bathing given patient's reduced trunk control, impaired sitting balance, and R sided hemiparesis and reduced attention to her R side. The patient will also require a hospital bed for optimal safety in order to prevent aspiration risk while sleeping and eating. Trice Juarez, PT, DPT
--- NOTE | 2019-08-03 12:28 | PCOTNOTE ---
Starla Sun was evaluated for a bariatric bedside commode and bariatric tub transfer bench on 08/03/19 by this occupational therapist. The bariatric commode will resolve patient's toileting limitations as she will need an elevated surface for toileting and will be unable to consistently ambulate into bathroom for toileting independently due to CVA with RT flaccid complicated by aphasia. The bariatric commode will be used at bedside to allow for independence with toileting within the home. A bariatric commode is necessary due to patient anatomic hip width of 22 inches and weight of 124.8 KG.
--- NOTE | 2019-08-03 13:26 | PCPTNOTE ---
Trice Juarez PT completed an inpatient rehab wheelchair evaluation on Sun Cha on 08/03/2019. The patient is unable to safely and independently ambulate household distances due to their current impairments. Their diagnosis is CVA and their impairments include decreased strength, decreased endurance, decreased range of motion, decreased balance, lower extremity weakness, and impaired balance. Ms. Cha's weight bearing status is weight-bearing as tolerated on the bilateral lower legs. The patient demonstrates significant functional mobility limitations that impair their ability to participate in mobility-related activities of daily living (MRADLs), including toileting, feeding, dressing, grooming, and bathing in the customary locations in the home. These limitations cannot be sufficiently resolved by the use of an appropriately fitted cane or walker. It is recommended that the patient utilize a wheelchair for functional mobility within the home in order to facilitate optimal safety, independence and participation in all MRADL's and adequately access their home environment on a regular basis. The patient's home provides adequate access between rooms, maneuvering space, and surfaces to accommodate the recommended wheelchair. The use of a wheelchair for functional mobility is strongly recommended and the patient is receptive to using the wheelchair. The use of this wheelchair will significantly improve the patient's ability to participate in MRADLS and the patient will use it on a regular basis in the home. This will facilitate optimal safety, independence, and participation. The patient has demonstrated sufficient physical and mental capabilities needed to safely propel a manual wheelchair that is provided in the home during a typical day. Recommended Wheelchair Frame: HEAVY DUTY (patient currently weighs 276lbs requiring heavy duty frame) Recommended Wheelchair Size: 24 x 18 (patient's hip width = 22 ) Recommended Wheelchair Cushion:STANDARD Wheelchair Leg Recommendations: BILATERAL ELEVATING LEG RESTS -A heavy duty wheelchair is recommended because the patient weighs more than 250 pounds (patient weighs 276 lbs.). -Elevating legrests are recommended because the patient has significant edema of the lower extremities that requires an elevating legrest. -Anti-tippers are recommended due to patient demonstrating increased risk for falls. They would benefit from anti-tippers with added safety and stabilization. -Adjustable arm height is recommended because the patient requires an arm height that is different than that which is available using non-adjustable arms. The patient spends at least 2 hours per day in the wheelchair. Trice Juarez PT, DPT ____4/28/20 Evaluating Therapist Date I agree with and certify that the above recommendation is medically necessary. Referring Physician Date
[2019-08-03 14:00] VITALS: BP 139/61; PULSE 70; RESP 16; TEMP 36; O2SAT 100
--- NOTE | 2019-08-03 14:47 | WPDNEURORHBP ---
Subjective Date/time seen: 08/03/19 14:47 Interval history: this 59-year-old the hypertensive a from [place] woman is here after having had left-sided large basal ganglia hemorrhage which has left her with aphasia and moderately severe right-sided hemiplegia from which she is improving and making some progress her potassium level the last time we checked was relatively low will check it again the son Paul was on telephone for the team conference questions were asked and a discussed they are willing to take her home with the family available multiple question was answered to the best of my ability she denies any headache nausea vomiting chest pain shortness of breath fever chills or sore throat Review of Systems Review of Systems: All systems reviewed & are unremarkable except as noted in HPI and below Functional Status Ambulation Ability Ability to Ambulate 10 Feet: Moderate Assistance X 1 Ambulation Assistive Devices: Railings Transfers Ability Ability to Transfer In/Out of Chair: Moderate Assistance X 1 Exam Const: General: comfortable and no acute distress HENMT: General nose exam: Normal nares present Mouth: Yes moist mucous membranes Eyes: General: appearance normal, both eyes and all related structures Neck: Neck: supple and no JVD Resp: Effort & Inspection: normal respiratory effort Auscultation: clear to auscultation bilaterally Cardio: Rate: regular rate Rhythm: regular rhythm GI: GI Palp: Yes Soft to palpation Auscultation: normal bowel sounds Skin: General skin exam: normal color and no rashes or lesions noted Neuro: Other: patient's aphasia is better right-sided weakness is better but is still needing significant assistance in the activities of daily living Extrem: General: normal to inspection Psych: Other: with aphasia difficult to assess her mental faculties however she does not seem to be suspicious paranoid or 2nd Objective Data Vital Signs Vital Signs: Vital Signs - 24 hr 08/02/19 22:00 08/03/19 06:00 08/03/19 08:00 Temperature 36.1 C L 36.0 C L Pulse Rate 61 75 75 Respiratory Rate 16 18 18 Blood Pressure 147/64 H 161/88 H Pulse Oximetry 100 99 99 Intake/Output Intake/Output: Intake & Output 07/31/19 08/01/19 08/02/19 08/03/19 23:59 23:59 23:59 23:59 Intake Total 600 720 720 240 Balance 600 720 720 240 Meds/Results Medications: Active Medications Generic Name Dose Route Start Last Admin Trade Name Freq PRN Reason Stop Dose Admin Acetaminophen 650 mg 07/14/19 12:47 08/03/19 06:27 Tylenol Tablet PO 650 mg Q4H PRN Administration Pain Albuterol 2 puff 07/14/19 12:47 Proventil Hfa INHALATION Q4H PRN Shortness Of Breath Amlodipine Besylate 10 mg 07/15/19 09:00 08/03/19 09:07 Norvasc PO 10 mg DAILY CHANDRA Administration Docusate Sodium 100 mg 07/14/19 21:00 08/03/19 09:07 Colace Capsule PO 100 mg Q12HR CHANDRA Administration Heparin Sodium (Porcine) 5,000 units 07/14/19 14:00 08/03/19 14:22 Heparin Sodium SUB-Q 5,000 units Q8HR CHANDRA Administration Hydrochlorothiazide 50 mg 07/15/19 09:00 08/03/19 09:07 Hydrochlorothiazide PO 50 mg DAILY CHANDRA Administration Lactulose 30 gm 07/27/19 09:13 Lactulose PO QAM PRN Constipation Potassium Chloride 60 meq 07/30/19 08:00 08/03/19 09:07 Kcl Tablet PO 60 meq DAILY@0800 CHANDRA Administration Senna 8.6 mg 07/15/19 09:00 08/03/19 09:08 Senokot Tablet PO 08/14/19 09:01 8.6 mg DAILY CHANDRA Administration Progress Note: A&P Assessment and Plan (1) Hypokalemia: Code(s): E87.6 - Hypokalemia Status: Acute (2) Right hemiparesis: Code(s): G81.91 - Hemiplegia, unspecified affecting right dominant side Status: Acute (3) Aphasia: Code(s): R47.01 - Aphasia Status: Acute (4) Hypertension: Code(s): I10 - Essential (primary) hypertension Status: Acute (5) Intracranial hemorr
[2019-08-03 22:00] VITALS: BP 139/49; PULSE 71; RESP 18; TEMP 36.5; O2SAT 99
[2019-08-04 05:20] LABS: Blood Urea Nitrogen 16 mg/dL (7-17); Calcium 9.8 mg/dL (8.4-10.2); Carbon Dioxide 27 mmol/L (22-30); Chloride 103 mmol/L (98-107); Estimated CRCL calculation 101 ml/min; Estimated Glomerular Filt Rate > 60; Glucose 104 mg/dL (65-105); Potassium 3.7 mmol/L (3.4-5.0); Sodium 136 mmol/L (137-145)
[2019-08-04] MEDS: HEPARIN SODIUM 5,000 UNITS/ML VIAL 5000 UNITS SUB-Q ×3 (05:26→21:30)
[2019-08-04 06:00] VITALS: BP 140/63; PULSE 57; RESP 18; TEMP 36.6; O2SAT 99
[2019-08-04] MEDS: POTASSIUM CHLORIDE 20 MEQ TABLET.ER 60 MEQ PO (09:51)
[2019-08-04] MEDS: hydroCHLOROthiazide 25 MG TABLET 50 MG PO (09:51)
[2019-08-04] MEDS: DOCUSATE SODIUM 100 MG CAPSULE PO ×2 (09:51→21:30)
[2019-08-04] MEDS: AMLODIPINE BESYLATE 5 MG TABLET 10 MG PO (09:51)
[2019-08-04] MEDS: SENNOSIDES 8.6 MG TABLET PO (09:52)
--- NOTE | 2019-08-04 13:07 | WPDNEURORHBP ---
Subjective Date/time seen: 08/04/19 13:07 Interval history: this 59-year-old Afro-[place] woman is here after having had a left hemispheric intracranial hemorrhage with had left her with aphasia and right-sided hemiplegia from both of which she has improved to a point that we are planning to be discharging her tomorrow patient denies any headache nausea vomiting chest pain shortness breath fever chills or sore throat her potassium is much better than before she will have another set of blood test tomorrow and will see the PT OT at home with home health Review of Systems Review of Systems: All systems reviewed & are unremarkable except as noted in HPI and below Functional Status Ambulation Ability Ability to Ambulate 10 Feet: Moderate Assistance X 1 Ambulation Assistive Devices: Railings Transfers Ability Ability to Transfer In/Out of Chair: Moderate Assistance X 1 Exam Const: General: comfortable and no acute distress HENMT: General nose exam: Normal nares present Mouth: Yes moist mucous membranes Eyes: General: appearance normal, both eyes and all related structures Neck: Neck: supple and no JVD Resp: Effort & Inspection: normal respiratory effort Auscultation: clear to auscultation bilaterally Cardio: Rate: regular rate Rhythm: regular rhythm GI: GI Palp: Yes Soft to palpation Auscultation: normal bowel sounds Skin: General skin exam: normal color and no rashes or lesions noted Neuro: Other: patient's aphasia is much better she is receptive and communicative better right-sided weakness has improved family is being trained to take her home tomorrow they were available this morning for the family training Extrem: General: normal to inspection Psych: Other: mood is better aphasia is better and overall picture is of improved Objective Data Vital Signs Vital Signs: Vital Signs - 24 hr 08/03/19 14:00 08/03/19 22:00 08/04/19 06:00 Temperature 36.0 C L 36.5 C 36.6 C Pulse Rate 70 71 57 L Respiratory Rate 16 18 18 Blood Pressure 139/61 139/49 L 140/63 Pulse Oximetry 100 99 99 Intake/Output Intake/Output: Intake & Output 08/01/19 08/02/19 08/03/19 08/04/19 23:59 23:59 23:59 23:59 Intake Total 720 720 950 200 Balance 720 720 950 200 Meds/Results Medications: Active Medications Generic Name Dose Route Start Last Admin Trade Name Freq PRN Reason Stop Dose Admin Acetaminophen 650 mg 07/14/19 12:47 08/03/19 06:27 Tylenol Tablet PO 650 mg Q4H PRN Administration Pain Albuterol 2 puff 07/14/19 12:47 Proventil Hfa INHALATION Q4H PRN Shortness Of Breath Amlodipine Besylate 10 mg 07/15/19 09:00 08/04/19 09:51 Norvasc PO 10 mg DAILY CHANDRA Administration Docusate Sodium 100 mg 07/14/19 21:00 08/04/19 09:51 Colace Capsule PO 100 mg Q12HR CHANDRA Administration Heparin Sodium (Porcine) 5,000 units 07/14/19 14:00 08/04/19 05:26 Heparin Sodium SUB-Q 5,000 units Q8HR CHANDRA Administration Hydrochlorothiazide 50 mg 07/15/19 09:00 08/04/19 09:51 Hydrochlorothiazide PO 50 mg DAILY CHANDRA Administration Lactulose 30 gm 07/27/19 09:13 Lactulose PO QAM PRN Constipation Potassium Chloride 60 meq 07/30/19 08:00 08/04/19 09:51 Kcl Tablet PO 60 meq DAILY@0800 CHANDRA Administration Senna 8.6 mg 07/15/19 09:00 08/04/19 09:52 Senokot Tablet PO 08/14/19 09:01 8.6 mg DAILY CHANDRA Administration Labs Labs: Laboratory Results - last 24 hr 08/04/19 04:21 Sodium 136 L Potassium 3.7 Chloride 103 Carbon Dioxide 27 BUN 16 Creatinine 0.70 Estim Creat Clear Calc 101 Estimated GFR > 60 Glucose 104 Calcium 9.8 Progress Note: A&P Assessment and Plan (1) Hypokalemia: Code(s): E87.6 - Hypokalemia Status: Acute (2) Right hemiparesis: Code(s): G81.91 - Hemiplegia, unspecified affecting right dominant side Status: Acute (3) Aphasia: Code(s): R47.01 - Aphas
[2019-08-04 14:00] VITALS: BP 151/71; PULSE 67; RESP 16; TEMP 36.8; O2SAT 100
[2019-08-04 21:35] VITALS: BP 116/62; PULSE 60; RESP 20; TEMP 36.6; O2SAT 100
[2019-08-05 04:50] LABS: Basophils Percent Auto 0.6 % (0.2-1.2); Eosinophils Absolute Auto 0.2 K/mm3 (0-0.3); Eosinophils Percent Auto 4.4 % (0-4.4); Hematocrit 39.7 % (37.0-47.0); Hemoglobin 13.3 g/dL (12.0-15.0); Immature Granulocyte Absolute 0.01 K/mm3 (0.00-0.031); Immature Granulocyte Percent A 0.2 % (0-0.5); Lymphocytes Absolute Auto 1.61 K/mm3 (0.9-3.2); Lymphocytes Percent Auto 32.1 % (18.3-44.2); Mean Corpuscular HGB Conc 33.5 g/dl (32-36); Mean Corpuscular Volume 92.5 fl (80-100); Mean Platelet Volume 12.2 fl (7.4-10.4); Monocytes Absolute Auto 0.6 K/mm3 (0.1-0.6); Monocytes Percent Auto 11.2 % (2.6-8.5); Neutrophils Absolute Auto 2.6 K/mm3 (1.3-6.7); Neutrophils Percent Auto 51.5 % (45.5-73.1); Platelet Count Result 189 k/mm3 (150-375); Red Blood Count 4.29 M/mm3 (4.2-5.4); Red Cell Distribution Width 12.6 % (11.5-14.5)
[2019-08-05 05:06] LABS: Blood Urea Nitrogen 17 mg/dL (7-17); Calcium 10.1 mg/dL (8.4-10.2); Carbon Dioxide 27 mmol/L (22-30); Chloride 104 mmol/L (98-107); Estimated CRCL calculation 90 ml/min; Estimated Glomerular Filt Rate > 60; Glucose 114 mg/dL (65-105); Potassium 3.8 mmol/L (3.4-5.0); Sodium 138 mmol/L (137-145)
[2019-08-05] MEDS: HEPARIN SODIUM 5,000 UNITS/ML VIAL 5000 UNITS SUB-Q (05:54)
[2019-08-05 06:00] VITALS: BP 144/63; PULSE 69; RESP 16; TEMP 36.4; O2SAT 100
[2019-08-05] MEDS: SENNOSIDES 8.6 MG TABLET PO (09:10)
[2019-08-05] MEDS: AMLODIPINE BESYLATE 5 MG TABLET 10 MG PO (09:10)
[2019-08-05] MEDS: POTASSIUM CHLORIDE 20 MEQ TABLET.ER 60 MEQ PO (09:10)
[2019-08-05] MEDS: hydroCHLOROthiazide 25 MG TABLET 50 MG PO (09:11)
[2019-08-05] MEDS: DOCUSATE SODIUM 100 MG CAPSULE PO (09:11)
--- NOTE | 2019-08-05 11:46 | WPDNEURORHBP ---
Subjective Date/time seen: 08/05/19 11:46 Interval history: this 59-year-old woman has finish the rehab in his ready to be discharged she had the left hemispheric intracranial hemorrhage which had left her with aphasia and right-sided hemiplegia she has improved to a point to be discharged to home with home health and the follow-up appointment at the tertiary care facility from where she came to us she denies any new symptoms particularly no headache nausea vomiting chest pain shortness of breath fever chills or sore throat Review of Systems Review of Systems: All systems reviewed & are unremarkable except as noted in HPI and below Functional Status Ambulation Ability Ability to Ambulate 10 Feet: Moderate Assistance X 1 Ambulation Assistive Devices: Railings Transfers Ability Ability to Transfer In/Out of Chair: Moderate Assistance X 1 Exam Const: General: comfortable and no acute distress HENMT: General nose exam: Normal nares present Mouth: Yes moist mucous membranes Eyes: General: appearance normal, both eyes and all related structures Neck: Neck: supple and no JVD Resp: Effort & Inspection: normal respiratory effort Auscultation: clear to auscultation bilaterally Cardio: Rate: regular rate Rhythm: regular rhythm GI: GI Palp: Yes Soft to palpation Auscultation: normal bowel sounds Skin: General skin exam: normal color and no rashes or lesions noted Neuro: Other: patient is awake alert her aphasia is much better than the previous days right-sided weakness has also improved but she will need the continuation of the therapy at home with home health Extrem: General: normal to inspection Psych: Other: improved aphasia patient is smiling and ready to be discharged Objective Data Vital Signs Vital Signs: Vital Signs - 24 hr 08/04/19 14:00 08/04/19 21:35 08/05/19 06:00 Temperature 36.8 C 36.6 C 36.4 C L Pulse Rate 67 60 69 Respiratory Rate 16 20 16 Blood Pressure 151/71 H 116/62 144/63 H Pulse Oximetry 100 100 100 Intake/Output Intake/Output: Intake & Output 08/02/19 08/03/19 08/04/19 08/05/19 23:59 23:59 23:59 23:59 Intake Total 720 950 440 240 Balance 720 950 440 240 Meds/Results Medications: Active Medications Generic Name Dose Route Start Last Admin Trade Name Freq PRN Reason Stop Dose Admin Acetaminophen 650 mg 07/14/19 12:47 08/03/19 06:27 Tylenol Tablet PO 650 mg Q4H PRN Administration Pain Albuterol 2 puff 07/14/19 12:47 Proventil Hfa INHALATION Q4H PRN Shortness Of Breath Amlodipine Besylate 10 mg 07/15/19 09:00 08/05/19 09:10 Norvasc PO 10 mg DAILY CHANDRA Administration Docusate Sodium 100 mg 07/14/19 21:00 08/05/19 09:11 Colace Capsule PO 100 mg Q12HR CHANDRA Administration Heparin Sodium (Porcine) 5,000 units 07/14/19 14:00 08/05/19 05:54 Heparin Sodium SUB-Q 5,000 units Q8HR CHANDRA Administration Hydrochlorothiazide 50 mg 07/15/19 09:00 08/05/19 09:11 Hydrochlorothiazide PO 50 mg DAILY CHANDRA Administration Lactulose 30 gm 07/27/19 09:13 Lactulose PO QAM PRN Constipation Potassium Chloride 60 meq 07/30/19 08:00 08/05/19 09:10 Kcl Tablet PO 60 meq DAILY@0800 CHANDRA Administration Senna 8.6 mg 07/15/19 09:00 08/05/19 09:10 Senokot Tablet PO 08/14/19 09:01 8.6 mg DAILY CHANDRA Administration Labs Labs: Laboratory Results - last 24 hr 08/05/19 08/05/19 04:24 04:24 WBC 5.0 RBC 4.29 Hgb 13.3 Hct 39.7 MCV 92.5 MCH 31.0 MCHC 33.5 RDW 12.6 Plt Count 189 MPV 12.2 H Immature Gran % (Auto) 0.2 Neut % (Auto) 51.5 Lymph % (Auto) 32.1 [place] % (Auto) 11.2 H Eos % (Auto) 4.4 Baso % (Auto) 0.6 Lymph # (Auto) 1.61 [place] # (Auto) 0.6 Eos # (Auto) 0.2 Baso # (Auto) 0.0 Abs Immat Gran (auto) 0.01 Absolute Neuts (auto) 2.6 Absolute Nucleated RBC 0.0 Nucleated RBC % 0.0 Sodium 138 Potassium 3.8 Chloride 104 Carb
--- NOTE | 2019-08-07 17:16 | PM.DS ---
DS: Diagnosis Admitting Diagnosis Admitting Diagnosis: Nontraumatic intracranial hemorrhage, unspecified Discharge Diagnosis (1) Hypokalemia: Code(s): E87.6 - Hypokalemia Status: Acute (2) Dysphagia: Code(s): R13.10 - Dysphagia, unspecified Status: Acute (3) Right hemiparesis: Code(s): G81.91 - Hemiplegia, unspecified affecting right dominant side Status: Acute (4) Aphasia: Code(s): R47.01 - Aphasia Status: Acute (5) Hypertension: Code(s): I10 - Essential (primary) hypertension Status: Acute (6) Intracranial hemorrhage: Code(s): I62.9 - Nontraumatic intracranial hemorrhage, unspecified Status: Acute (7) Stroke: Code(s): I63.9 - Cerebral infarction, unspecified Status: Acute DS: Summary Hospital Course Reason for hospitalization: this 59-year-old Afro-[place] woman was admitted after having had left-sided large basal ganglia hemorrhage which had left her with aphasia right-sided hemiplegia from which she improved fairly well but still has deficit of right-sided hemiparesis and speech defect Hospital Course: patient received the speech therapy physical therapy of compression therapy and gait training and was able to achieve following independent measures, eating setup oral hygiene setup toileting substantial, bathing partial assistance, upper body dressing partial assistance, lower body dressing substantial, footwear substantial, rolling in bed independent sitting to lying partial assistance lying to sitting partial assistance sit to stand supervision chair transfers partial assistance to a transverse partial assistance car transfers partial assistance walking 10 feet dependent walking 50 feet patient unable to walking 150 feet patient was unable to walking 10 feet uneven surfaces patient unable to car were set up patient unable to 4 steps patient unable to 12 steps patient unable to picking up objects patient unable wheelchair 50 feet partial assistance wheelchair 150 feet partial assistance patient was sent home with home health to do the PT OT and speech no falls were recorded Time Spent with Patient Time attestation: Total time spent providing and/or coordinating discharge services: Exam Const: General: comfortable and no acute distress HENMT: General nose exam: Normal nares present Mouth: Yes dry mucous membranes Eyes: General: appearance normal, both eyes and all related structures Other: right-sided visual field defect neglect which has improved Neck: Neck: supple Resp: Effort & Inspection: normal respiratory effort Auscultation: clear to auscultation bilaterally Cardio: Rate: regular rate Rhythm: regular rhythm GI: GI Palp: Yes Soft to palpation Auscultation: normal bowel sounds Skin: General skin exam: normal color and no rashes or lesions noted Neuro: Other: patient's speech defect had improved she has come able to communicate better however right-sided visual field defect and right-sided hemiparesis is still there with some improvement needing assistance as mentioned above Extrem: General: normal to inspection Psych: Other: patient was not as depressed she was smiling she showed sign of improvement however because of aphasia it is difficult to assess overall mental faculties DS: Data Data Completed and Pending Completed studies during hospitalization: on August 04 the patient's white count was 5000 hemoglobin 13.3 hematocrit 39.7 platelet count of 189 Sodium [address] 0.8 BUN 17 creatinine of 0.8 sugar 114 Discharge Plan Discharge Attending physician on discharge: Souleymane Talley Discharging Clinician: Souleymane Talley Anticipated Discharge Date/Time: 08/05/19 13:10 Patient Disposition: Home Health Service Activity: may shower and no driving Diet: heart healthy Discharge Instructions: Per Care Coordination: [facility] has been arranged at discharge. [facility] will follow
== END 2019-08-05 12:30 | disposition home health service (06) | DRG 57 ==
PROVIDERS: Psychiatry & Neurology Neurology; Admitting Provider Psychiatry & Neurology Neurology; Visit Provider Psychiatry & Neurology Neurology
DX: I69.251 Hemiplegia and hemiparesis following other nontraumatic intracranial hemorrhage affecting right dominant side (principal); I69.220 Aphasia following other nontraumatic intracranial hemorrhage; I69.298 Other sequelae of other nontraumatic intracranial hemorrhage; I69.291 Dysphagia following other nontraumatic intracranial hemorrhage; R13.10 Dysphagia, unspecified; H51.8 Other specified disorders of binocular movement; E87.6 Hypokalemia; I10 Essential (primary) hypertension; J45.909 Unspecified asthma, uncomplicated; Z87.891 Personal history of nicotine dependence
CPT/HCPCS: 36415; 80048; 85025; 92507; 92523; 92610; 97110; 97112; 97116; 97129; 97130; 97162; 97165; 97530; 97535; 97542; A9270; J1644; J3480